=== PATIENT | male | born 1965 | race Caucasian/White ===

== ENCOUNTER 2016-12-17 09:34 | Emergency (ER) | payer MEDICAID, OTHER ==
[~2016-12-17] VITALS: Ht 182.9 cm; Wt 86.2 kg
[~2016-12-17 09:34] MED LIST: /CELE20CA OR; /ESCI20TA OR; /HALO5TAB OR; /QUET10TA OR; ABIL5TAB OR; AMBI10TA OR; ASPI81CH3 PO; ATIV1TAB2 OR; CLAR5CHW OR; CLARITIN PO; COLA100C2 OR; DEPA500T OR; FLON0.05; GEOD20CA14 PO; HYDR-4274 PO; HYDR50TA8 OR; IBUP600T OR; LEXA5TAB13 PO; OXCA300T PO; PERC5TAB8 OR; SERO200T OR; SEROQUEL PO; TOPI25TA2 OR; TRAM50TA2 OR; TRAZ150T OR; TRAZ300T2 OR; TRAZ50TA OR; ULTRAM PO; WELL200T OR
[2016-12-17 09:35] VITALS: BP 116/72
[2016-12-17] MEDS ORDERED: IBUP80TA PO (10:22)
[2016-12-17] MEDS ORDERED: TYLE325T5 PO (10:22)
[2016-12-17] MEDS ORDERED: AMOX500C PO (10:22)
== END 2016-12-17 10:29 | disposition home or self-care (01) ==
LOC: M ED 10:17
DX: K02.9 Dental caries, unspecified (principal)

== ENCOUNTER 2017-03-11 08:49 | Emergency (ER) | payer MEDICAID, OTHER ==
[~2017-03-11] VITALS: Ht 182.9 cm; Wt 99.9 kg
[~2017-03-11 08:49] MED LIST changes: +AMOX500C PO; -HYDR-4274 PO; +HYDR50TA70 PO; +IBUP80TA PO; +TYLE325T5 PO
[2017-03-11] MEDS ORDERED: LEXA5TAB13 PO (10:17)
[2017-03-11 10:22] VITALS: BP 137/93
== END 2017-03-11 10:24 | disposition home or self-care (01) ==
LOC: M ED 08:49
DX: Z76.0 Encounter for issue of repeat prescription (principal); F32.9 Major depressive disorder, single episode, unspecified; F41.9 Anxiety disorder, unspecified

== ENCOUNTER 2020-05-10 00:11 | Emergency (ER) | payer MEDICAID, OTHER, SELFPAY ==
[~2020-05-10] VITALS: Ht 182.9 cm; Wt 102.2 kg
[~2020-05-10 00:11] MED LIST changes: -/CELE20CA OR; -/ESCI20TA OR; -/HALO5TAB OR; -/QUET10TA OR; -ASPI81CH3 PO; +ASPI81CH48 PO; +CELE1CAP4 OR; +HALO1TAB21 OR; +LEXA1TAB2 OR; -OXCA300T PO; +OXCA300T14 PO; +SERO1TAB OR
[2020-05-10 00:12] VITALS: BP 153/73
[2020-05-10] MEDS ORDERED: Thorazine PO (00:18)
[2020-05-10] MEDS ORDERED: ASEN5TA SL ×2 (00:18→01:37)
[2020-05-10] MEDS ORDERED: thorazine PO (01:35)
== END 2020-05-10 01:44 | disposition home or self-care (01) ==
LOC: M ED 00:11
DX: Z76.0 Encounter for issue of repeat prescription (principal); F31.9 Bipolar disorder, unspecified; Z79.899 Other long term (current) drug therapy; Z88.8 Allergy status to other drugs, medicaments and biological substances

== ENCOUNTER 2020-05-12 16:07 | Emergency (ER) | payer SELFPAY ==
[~2020-05-12] VITALS: Ht 182.9 cm; Wt 100.9 kg
[2020-05-12 16:07] VITALS: BP 130/90
[~2020-05-12 16:07] MED LIST changes: +ASEN5TA SL; +Thorazine PO; +thorazine PO
[2020-05-12] MEDS ORDERED: NS 1,000 ML IV ONE (16:30)
[2020-05-12] MEDS ORDERED: KETOROLAC 30 MG/ML 1ML VIAL IV ONE (16:30)
[2020-05-12] MEDS ORDERED: METOCLOPRAMIDE INJ 10MG/2ML VIAL (J2765 PER 1) IV ONE (16:30)
[2020-05-12 16:43] LABS: HEMATOCRIT 39.5 % (42.0-52.0); MEAN CORPUSCULAR HEMOGLOBIN 30.2 pg (27.0-33.0); MEAN CORPUSCULAR HGB CONC 32.9 g/dl (32.0-36.5); MEAN CORPUSCULAR VOLUME 91.6 fl (80.0-96.0); PLATELET COUNT, AUTOMATED 280 10^3/uL (150-450); RED BLOOD COUNT 4.31 10^6/uL (4.30-6.10); WHITE BLOOD COUNT 10.1 10^3/uL (4.0-10.0)
[2020-05-12 17:10] LABS: ALBUMIN 3.4 GM/DL (3.2-5.2); ALT/SGPT 95 U/L (12-78); BILIRUBIN,DIRECT 0.1 MG/DL (0.0-0.2); BILIRUBIN,TOTAL 0.3 MG/DL (0.2-1.0); BLOOD UREA NITROGEN 11 MG/DL (7-18); CALCIUM LEVEL 8.8 MG/DL (8.5-10.1); CARBON DIOXIDE LEVEL 26 MEQ/L (21-32); CHLORIDE LEVEL 108 MEQ/L (98-107); CREATININE FOR GFR 0.88 MG/DL (0.70-1.30); GLOMERULAR FILTRATION RATE > 60.0 (>56); GLUCOSE, FASTING 105 MG/DL (70-100); POTASSIUM SERUM 3.9 MEQ/L (3.5-5.1); SODIUM LEVEL 140 MEQ/L (136-145)
--- NOTE | 2020-05-12 17:47 | REPVR ---
PROCEDURE INFORMATION: Exam: CT Head Without Contrast Exam date and time: 05/12/2020 4:41 PM Age: 54 years old Clinical indication: Pain; Headache not specified; Additional info: IBARRA TECHNIQUE: Imaging protocol: Computed tomography of the head without contrast. Radiation optimization: All CT scans at this facility use at least one of these dose optimization techniques: automated exposure control; mA and/or kV adjustment per patient size (includes targeted exams where dose is matched to clinical indication); or iterative reconstruction. COMPARISON: CT Head without contrast 05/30/2016 12:50 AM FINDINGS: Brain: Unremarkable. No hemorrhage. No significant white matter disease. No edema. Ventricles: Unremarkable. No ventriculomegaly. Bones/joints: Unremarkable. No acute fracture. Sinuses: Visualized sinuses are unremarkable. No fluid levels. Mastoid air cells: Visualized mastoid air cells are well aerated. Soft tissues: Unremarkable. IMPRESSION: No acute abnormality. Electronically signed by: Edwin Kruse On 05/12/2020 17:47:00 PM
== END 2020-05-12 18:41 | disposition home or self-care (01) ==
LOC: M ED 16:07
DX: F17.200 Nicotine dependence, unspecified, uncomplicated (principal); Z88.6 Allergy status to analgesic agent; Z88.8 Allergy status to other drugs, medicaments and biological substances
CPT/HCPCS: 70450; 80048; 80076; 82140; 85027; 96361; 96374; 99283; J1885; J2765

== ENCOUNTER 2020-06-05 09:33 | Emergency (ER) | payer OTHER, SELFPAY ==
[~2020-06-05] VITALS: Ht 182.9 cm; Wt 94.3 kg
[2020-06-05 11:29] VITALS: BP 151/91
== END 2020-06-05 11:31 | disposition home or self-care (01) ==
LOC: M ED 09:33
DX: Z59.0 Homelessness (principal); F17.200 Nicotine dependence, unspecified, uncomplicated; F12.10 Cannabis abuse, uncomplicated; Z88.6 Allergy status to analgesic agent; Z88.8 Allergy status to other drugs, medicaments and biological substances; Z79.899 Other long term (current) drug therapy

== ENCOUNTER 2020-06-15 08:58 | Emergency (ER) | payer OTHER ==
[~2020-06-15] VITALS: Ht 182.9 cm; Wt 96.5 kg
[2020-06-15] MEDS ORDERED: LIDOCAINE 5% (LIDODERM) PATCH TD ONE (09:30)
[2020-06-15] MEDS ORDERED: KETOROLAC 60MG 2ML VIAL IM ONE (09:30)
[2020-06-15 10:19] VITALS: BP 120/79
[2020-06-15] MEDS ORDERED: **NOTE PATIENT COMMENT** MISC XX SCH (21:00)
== END 2020-06-15 10:32 | disposition home or self-care (01) ==
LOC: M ED 08:58
DX: M25.512 Pain in left shoulder (principal); F12.10 Cannabis abuse, uncomplicated; Z79.899 Other long term (current) drug therapy; Z88.8 Allergy status to other drugs, medicaments and biological substances; Z88.6 Allergy status to analgesic agent
CPT/HCPCS: 96372; 99283; J1885

== ENCOUNTER 2020-06-18 02:32 | Emergency (ER) | payer OTHER ==
[~2020-06-18] VITALS: Ht 182.9 cm; Wt 97.2 kg
[2020-06-18] MEDS ORDERED: ASEN5TA SL (04:00)
[2020-06-18] MEDS ORDERED: CHLOR50TA PO (04:00)
[2020-06-18] MEDS ORDERED: chlorproMAZINE 25 MG TABLET PO ONE (04:00)
[2020-06-18 04:27] VITALS: BP 117/71
== END 2020-06-18 04:31 | disposition home or self-care (01) ==
LOC: M ED 02:32
DX: Z63.4 Disappearance and death of family member (principal); Z91.14 Patient's other noncompliance with medication regimen; Z79.899 Other long term (current) drug therapy; Z88.8 Allergy status to other drugs, medicaments and biological substances
CPT/HCPCS: 99284; Q0161

== ENCOUNTER 2020-07-13 06:31 | Emergency (ER) | payer OTHER ==
[~2020-07-13] VITALS: Ht 182.9 cm; Wt 94.0 kg
[~2020-07-13 06:31] MED LIST changes: +CHLOR50TA PO
[2020-07-13] MEDS ORDERED: KETOROLAC 30 MG/ML 1ML VIAL IM ONE (07:30)
--- NOTE | 2020-07-13 07:38 | REP ---
INDICATION: productive cough. COMPARISON: Comparison chest x-ray June 22, 2016. TECHNIQUE: PA and lateral views... FINDINGS: Lungs are well inflated and free of infiltrate. Pleural angles are sharp. Heart size is normal. Pulmonary vasculature is not increased. No significant bony abnormality. IMPRESSION: Negative chest x-ray. <Electronically signed by Adam Rosado > 07/13/20 0780
--- NOTE | 2020-07-13 08:06 | ECGEPIP ---
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 Order Number: [id number] Reading MD: Clinton West Measurements Intervals [place] Rate: 82 P: 61 KS: 169 QRS: 37 QRSD: 84 T: 19 QT: 368 QTc: 430 Interpretive Statements SINUS RHYTHM POSSIBLE PRIOR INFERIOR INFARCT Electronically Signed on 07-13-2020 8:05:35 EDT by Clinton West
[2020-07-13] MEDS ORDERED: MUCI600T31 PO (08:24)
[2020-07-13] MEDS ORDERED: NAPR-837 PO (08:24)
[2020-07-13 08:35] VITALS: BP 115/69
== END 2020-07-13 08:38 | disposition home or self-care (01) ==
LOC: M ED 06:31
DX: G89.29 Other chronic pain (principal); M54.9 Dorsalgia, unspecified; M25.512 Pain in left shoulder; R05 Cough; Z79.899 Other long term (current) drug therapy; Z88.8 Allergy status to other drugs, medicaments and biological substances
CPT/HCPCS: 71046; 93005; 96372; 99284; J1885

== ENCOUNTER 2020-08-01 15:12 | Emergency (ER) | payer OTHER ==
[~2020-08-01] VITALS: Ht 182.9 cm; Wt 87.5 kg
[~2020-08-01 15:12] MED LIST changes: +MUCI600T31 PO; +NAPR-837 PO
[2020-08-01] MEDS ORDERED: CHLOR50TA PO (16:56)
[2020-08-01] MEDS ORDERED: ASEN5TA SL (16:56)
[2020-08-01 17:00] VITALS: BP 133/65
== END 2020-08-01 17:01 | disposition home or self-care (01) ==
LOC: M ED 15:12
DX: Z76.0 Encounter for issue of repeat prescription (principal); I10 Essential (primary) hypertension; F31.9 Bipolar disorder, unspecified; F41.9 Anxiety disorder, unspecified; F43.10 Post-traumatic stress disorder, unspecified; Z79.899 Other long term (current) drug therapy; Z88.8 Allergy status to other drugs, medicaments and biological substances

== ENCOUNTER 2020-08-12 13:07 | Emergency (ER) | payer MEDICAID, OTHER ==
[~2020-08-12] VITALS: Ht 182.9 cm; Wt 88.3 kg
[2020-08-12] MEDS ORDERED: TRIA1CR80 TOP (13:57)
[2020-08-12] MEDS ORDERED: PRED20TA PO (13:57)
[2020-08-12] MEDS ORDERED: predniSONE 20 MG TAB PO ONE (14:00)
[2020-08-12 14:48] VITALS: BP 132/88
== END 2020-08-12 14:51 | disposition home or self-care (01) ==
LOC: M ED 13:07
DX: L30.9 Dermatitis, unspecified (principal); I10 Essential (primary) hypertension; F33.9 Major depressive disorder, recurrent, unspecified; F41.9 Anxiety disorder, unspecified; F43.10 Post-traumatic stress disorder, unspecified; Z79.899 Other long term (current) drug therapy; Z88.8 Allergy status to other drugs, medicaments and biological substances; F17.210 Nicotine dependence, cigarettes, uncomplicated

== ENCOUNTER 2020-08-30 09:25 | Inpatient (IN) | payer MEDICAID ==
[~2020-08-30] VITALS: Ht 182.9 cm; Wt 84.1 kg
[~2020-08-30 09:25] MED LIST changes: +PRED20TA PO; +TRIA1CR80 TOP
[2020-08-30 10:24] LABS: HEMATOCRIT 43.8 % (42.0-52.0); HEMOGLOBIN 14.2 g/dl (13.5-17.5); MEAN CORPUSCULAR HGB CONC 32.4 g/dl (32.0-36.5); MEAN CORPUSCULAR VOLUME 89.6 fl (80.0-96.0); PLATELET COUNT, AUTOMATED 215 10^3/uL (150-450); RED BLOOD COUNT 4.89 10^6/uL (4.30-6.10); WHITE BLOOD COUNT 7.1 10^3/uL (4.0-10.0)
[2020-08-30 10:56] LABS: AMPHETAMINES LEVEL URINE POSITIVE (NEGATIVE); BARBITURATES URINE NEGATIVE (NEGATIVE); BENZODIAZEPINES URINE NEGATIVE (NEGATIVE); CANNABINOIDS URINE POSITIVE (NEGATIVE); COCAINE METABOLITE URINE NEGATIVE (NEGATIVE); METHADONE URINE NEGATIVE (NEGATIVE); OPIATES URINE NEGATIVE (NEGATIVE); PHENCYCLIDINE URINE NEGATIVE (NEGATIVE)
[2020-08-30 11:04] LABS: ACETAMINOPHEN LEVEL < 2.0 UG/ML (10.0-30.0); ALBUMIN 3.7 GM/DL (3.2-5.2); ALT/SGPT 26 U/L (12-78); BILIRUBIN,DIRECT 0.1 MG/DL (0.0-0.2); BILIRUBIN,TOTAL 0.5 MG/DL (0.2-1.0); BLOOD UREA NITROGEN 10 MG/DL (7-18); CARBON DIOXIDE LEVEL 27 MEQ/L (21-32); CHLORIDE LEVEL 106 MEQ/L (98-107); CREATININE FOR GFR 0.88 MG/DL (0.70-1.30); ETHYL ALCOHOL (ETHANOL) < 0.003 % (0.000-0.010); GLOMERULAR FILTRATION RATE > 60.0 (>56); GLUCOSE, FASTING 94 MG/DL (70-100); SALICYLATE LEVEL 2.9 MG/DL (5.0-30.0); SODIUM LEVEL 139 MEQ/L (136-145); TOTAL PROTEIN 7.3 GM/DL (6.4-8.2)
[2020-08-30] MEDS ORDERED: ASEN5TA SL (13:27)
[2020-08-30] MEDS ORDERED: CHLOR50TA PO (13:27)
[2020-08-30] MEDS ORDERED: TRIA1CR80 TOP (13:27)
[2020-08-30 15:26] LABS: RSV AMPLIFICATION NEGATIVE (NEGATIVE)
[2020-08-30] MEDS ORDERED: OLANZapine ORAL DISINTEGRATING TAB 5MG PO PRN (16:15)
[2020-08-30] MEDS ORDERED: ACETAMINOPHEN TAB 650MG DOSE (2X325MG) PO PRN (16:15)
[2020-08-30] MEDS ORDERED: MAALOX 30 ML SUSP *UDC PO PRN (16:15)
[2020-08-30] MEDS ORDERED: traZODone 50 MG TAB PO PRN (16:15)
[2020-08-30] MEDS ORDERED: MOM 30ML SUSPENSION UDC PO PRN (16:15)
[2020-08-30 18:48] VITALS: BP 123/84
[2020-08-30] MEDS: chlorproMAZINE 25 MG TABLET PO SCH (21:13)
[2020-08-31 06:34] VITALS: BP 132/89
[2020-08-31] MEDS: NICOTINE 7 MG/24 HR TRANSDERMAL TD SCH (08:36)
[2020-08-31] MEDS: chlorproMAZINE 25 MG TABLET PO SCH ×2 (08:37→21:09)
[2020-08-31] MEDS ORDERED: FLUBLOK(EGG FREE)(QUAD)INFLUENZA VACC 0.5ML SYRINGE 18YRS & OLDER IM ONE (09:00)
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
[2020-08-31] MEDS ORDERED: ACETAMINOPHEN 500 MG TAB PO PRN (14:30)
[2020-08-31] MEDS ORDERED: ASENAPINE 5 MG SL SCH (21:00)
[2020-09-01 06:37] VITALS: BP 141/85
[2020-09-01] MEDS: chlorproMAZINE 25 MG TABLET PO SCH ×2 (08:39→20:37)
[2020-09-01] MEDS: TRIAMCINOLONE ACET 0.1% CREAM 80 GM TOP PRN ×2 (08:41→20:36)
[2020-09-01] MEDS: NICOTINE 7 MG/24 HR TRANSDERMAL TD SCH (09:00)
--- NOTE | 2020-09-01 13:10 | CR.PDOC ---
General Date of Consultation: Sep 01, 2020 Consultation REASON FOR CONSULTATION/CHIEF COMPLAINT: Derm consultation was requested following patient complaints of pruritus and to rule out infestation. HISTORY OF PRESENT ILLNESS: Patient c/o a pruritic eruption on trunk and extremities x 2+ weeks. Patient notes having been given a course of prednisone (which he ended about 3 days ago), which he took with significant improvement. Patient states that now that he is off the oral steroids, the rash is starting to flare again. ALLERGIES: Please see below. HOME MEDICATIONS: Please see below. PE: -Eczematous eruption on trunk and extremities. -Annular eczematous plaques on bilateral hips. -Nothing noted in interdigital web spaces or flexural wrists. A/P: 1. Eczematous Dermatitis -Suggest triamcinolone 0.1% cream to be applied twice daily to trunk and extremities x 2 weeks (15 grams daily) 2. No evidence of Infestation Vital Signs/I&O Vital Signs Date Time Temp Pulse Resp B/P (MAP) Pulse Ox O2 Delivery O2 Flow Rate FiO2 09/01/20 06:37 98.7 89 16 141/85 (103) 100 Room Air Allergies Coded Allergies: aripiprazole (Verified Allergy, Intermediate, tardive dyskenesia, 05/10/20) lithium (Verified Allergy, Intermediate, numbness, 06/15/20) risperidone (Verified Allergy, Intermediate, sleep disorder, 06/15/20) divalproex sodium (Verified Allergy, Mild, PT REPORTS ITCHING, NO RESPIRATORY ISSUES., 05/10/20) trazodone (Verified Allergy, Unknown, 05/10/20) Home Medications Scheduled Asenapine (Saphris) 5 Mg Tab.subl, 5 MG SL BID, (Reported) Chlorpromazine HCl (Chlorpromazine HCl) 50 Mg Tablet, 50 MG PO BID, (Reported) Scheduled PRN Triamcinolone Acet (Triamcinolone Acetonide 0.1% Crm) 80 Gm Cream..g., 1 APPLIC TOP BID PRN for RASH/HIVES, (Reported) Brigid Gold PA-C Sep 01, 2020 13:10
--- NOTE | 2020-09-01 13:17 | MHIPNPDOC ---
[facility] Progress Note Progress Note DATE OF SERVICE: 09/01/20 HISTORY: The patient is met with today, reports that he is doing generally well without any major problems, he currently describes that he is feeling much im proved and doesn't have any complaints today. He hasn't started on the Saphris but reports that the Thorazine is quite helpful for his moods and he has interacted occasionally. He's had no concerning behavior per nursing staff. VITAL SIGNS: See below. NEW TEST RESULTS: None. CURRENT MEDICATIONS: See below. MENTAL STATUS EXAMINATION: General: [Well dressed with good hygiene] Speech: [Spontaneous and fluid] Thought processes: [Linear and logical] Thought content: [Future orientated] Abstract reasoning, and computation: [Intact] Description of associations: [Intact] Description of abnormal or psychotic thoughts:[Denies any suicidal or homicidal ideation. Denies any auditory or visual hallucinations. Does not appear to be responding to internal stimuli. Does not appear to be endorsing any bizarre or paranoid ideation.] Judgment: [Fair] Insight: [Fair] Orientation: [Alert and orientated 3] Recent and remote memory: [Intact] Attention span and concentration: [Intact] Fund of knowledge: [Adequate] Mood: "Good" Affect: [Euthymic with a full range] DIAGNOSES: 1. Other bipolar disorder. ASSESSMENT: Plans to continue patient on current home medications will observe over tonight and continue Seroquel will triaged for discharge as he appears to make quite a bit of progress and has not been demonstrating any paranoid thoughts and does well his medications. He has not demonstrated any difficulties and will be generally ready for discharge shortly MANAGEMENT PLAN: Continue Thorazine 2 mg twice a day and attempt to get Saphris 5 mg twice a day as well. TIME SPENT: 15 minutes. Vital Signs Vital Signs Date Time Temp Pulse Resp B/P (MAP) Pulse Ox O2 Delivery O2 Flow Rate FiO2 09/01/20 06:37 98.7 89 16 141/85 (103) 100 Room Air Current Medications Current Medications Medications (Trade) Dose Ordered Sig/Josie Route PRN Reason Start Time Stop Time Status Last Admin Dose Admin Acetaminophen (Tylenol Tab) 650 mg Q6HP PRN PO HEADACHE or DISCOMFORT 08/30/20 16:15 08/31/20 14:18 DC Acetaminophen (Tylenol Tab) 1,000 mg Q6HP PRN PO PAIN/ headache 08/31/20 14:30 Al Hydrox/Mg Hydrox/Simethicone (Mylanta) 30 ml Q4HP PRN PO HEARTBURN/INDIGESTION 08/30/20 16:15 Chlorpromazine HCl (Thorazine) 50 mg BID PO 08/30/20 21:00 09/01/20 08:39 Home Med (Med Rec Complete!) ASDIRECTED XX 08/30/20 13:30 08/30/20 13:29 DC Magnesium Hydroxide (Milk Of Magnesia) 30 ml DAILYPRN PRN PO CONSTIPATION 08/30/20 16:15 Nicotine (Nicoderm Cq 7 Mg) 1 patch DAILY TD 08/31/20 09:00 Olanzapine (ZyPREXA ZYDIS) 5 mg Q4HP PRN PO AGITATION 08/30/20 16:15 Patient Own Medication (Patient'S Own Med) Asenapine 5mg SL BID SL 08/31/20 21:00 UNV Trazodone HCl (Desyrel) 50 mg QHSP PRN PO INSOMNIA 08/30/20 16:15 Triamcinolone Acetonide (Kenalog 0.1% Cream) APPLY TO AFFECTED AREAS... BIDP PRN TOP RASH/HIVES 08/30/20 16:15 09/01/20 08:41 Allergies Coded Allergies: aripiprazole (Verified Allergy, Intermediate, tardive dyskenesia, 05/10/20) lithium (Verified Allergy, Intermediate, numbness, 06/15/20) risperidone (Verified Allergy, Intermediate, sleep disorder, 06/15/20) divalproex sodium (Verified Allergy, Mild, PT REPORTS ITCHING, NO RESPIRATORY ISSUES., 05/10/20) trazodone (Verified Allergy, Unknown, 05/10/20) RIZWAN KENNEDY DO Sep 01, 2020 13:17
[2020-09-01 18:00] VITALS: BP 123/87
[2020-09-02 06:23] VITALS: BP 147/91
[2020-09-02] MEDS: NICOTINE 7 MG/24 HR TRANSDERMAL TD SCH (09:00)
[2020-09-02] MEDS: chlorproMAZINE 25 MG TABLET PO SCH (09:08)
[2020-09-02] MEDS: TRIAMCINOLONE ACET 0.1% CREAM 80 GM TOP PRN (09:10)
--- NOTE | 2020-09-02 10:01 | MHDSPDOC ---
[facility] Discharge Summary Discharge Summary DATE OF ADMISSION: Aug 30, 2020 at 16:10 DATE OF DISCHARGE: Sep 02, 2020 at 15:10 DISCHARGE DIAGNOSES: Bipolar, unspecified CONSULTANTS INVOLVED:[ None (basic hospitalist screening)] REASON FOR ADMISSION & TREATMENT AND PROGRESS ON THE UNIT : The patient was admitted to the inpatient mental health unit being off his medications with some mild reported paranoia. However, when he had arrived on the unit this was not present. He was resumed on Thorazine 50 mg twice daily with positive effects, he was not able to be resumed on previously effective Saphris as we did not have been on the unit, he reported poor results with Zyprexa and other close approximations. He did well on Thorazine and engaged without any major issues, no threatening behavior suicide or other issues became present in his treatment. He was always cooperative and engaged during treatment and otherwise offered no resistance to our treatment suggestions. He made good progress and was triaged for discharge. DISCHARGE ASSESSMENT[improved] Legal status considerations: The patient at the time of discharge did not meet criteria for involuntary admission/extension due to having a [normal] mental status exam, [fair] insight into the situation, They are engaged in the discharge process, as well as being friendly and amenable in behavioral control and havent been engaging in any observed concerning behavior or ideation recently. They decline voluntary extension/admission at this time and must be discharged in good miki, as Im unable to make a case for holding the patient against their will. They may have historical risk factors of admissions and other interactions with psychiatry however, those are not modifiable from a clinical perspective. The patient will need to be discharged in good miki. MENTAL STATUS EXAMINATION ON DISCHARGE: [General: Well dressed with good hygiene Speech: Spontaneous and fluid Thought processes: Linear and logical Thought content: Future orientated Abstract reasoning, and computation: Intact Description of associations: Intact Description of abnormal or psychotic thoughts:Denies any suicidal or homicidal ideation. Denies any auditory or visual hallucinations. Does not appear to be re sponding to internal stimuli. Does not appear to be endorsing any bizarre or paranoid ideation. Judgment: fair Insight: fair Orientation: Alert and orientated 3 Recent and remote memory: Intact Attention span and concentration: Intact Fund of knowledge: Adequate Mood: "okay" Affect: Euthymic with a full range] PLAN/FOLLOWUP ARRANGEMENTS: Follow up appointments made (PCP and MH in 5 days of D/C date) and safety plan completed. Safety Planning aspects completed prior to discharge [Medication supplies limited to 7 days with 4 refills to prevent accumulation to OD] [Family contact completed, educated on safe practices, instructed on removal and mitigation of dangerous means] [RN reviewed crisis hotline information and other aspects to empower patient to access care in interim before next appointment.] The amount of time spent in the coordination of care for this patient was appr oximately 30 minutes. Vital Signs/I&Os Vital Signs Date Time Temp Pulse Resp B/P (MAP) Pulse Ox O2 Delivery O2 Flow Rate FiO2 09/02/20 06:23 98.6 99 14 147/91 (109) Room Air 09/01/20 06:37 100 Medications Scheduled Asenapine (Saphris) 5 Mg Tab.subl, 5 MG SL BID for mood for 7 Days, #14 Chlorpromazine HCl (Chlorpromazine HCl) 50 Mg Tablet, 50 MG PO BID for mood for 7 Days, #14 Scheduled PRN Triamcinolone Acet (Triamcinolone Acetonide 0.1% Crm) 80 Gm Cream..g., 1 APPLIC TOP BID PRN for RASH/HIVES, (Reported) Allergies Coded Allergies: aripiprazole (Verified Allergy, Intermediate, tardive dyskenesia, 05/10/20) lithium (Verified Allergy, Intermediate, numbness, 06/15/20) risperidone (Verified Allergy, Intermediate, sleep disorder, 06/15/20) divalproex sodium (Verified Allergy, Mild, PT REPORTS ITCHING, NO RESPIRATORY ISSUES., 05/10/20) trazodone (Verified Allergy, Unknown, 05/10/20) RIZWAN KENNEDY DO Sep 02, 2020 10:01
[2020-09-02] MEDS ORDERED: ASEN5TA SL (11:55)
[2020-09-02] MEDS ORDERED: CHLOR50TA PO (11:55)
== END 2020-09-02 15:10 | disposition home or self-care (01) | DRG 753 ==
LOC: M ED 09:25 → M ED INP 16:10 → M PSY 18:32
PROVIDERS: ADMIT Psychiatry & Neurology Addiction Medicine; ATTEND Psychiatry & Neurology Addiction Medicine
DX: F31.9 Bipolar disorder, unspecified (principal); L30.9 Dermatitis, unspecified; Z79.899 Other long term (current) drug therapy

== ENCOUNTER 2020-09-29 00:38 | Emergency (ER) | payer MEDICAID ==
[~2020-09-29] VITALS: Ht 182.9 cm; Wt 84.1 kg
--- OUTSIDE RECORDS SUMMARY | 2020-09-29 00:43 | CCD ---
Author Organization Unknown Address [address] [place] [address] Phone [phone] Care Team Providers Care Commercial Loan Reviewer Name Role Phone Fallon Bruner Unavailable Unavailable Allergies Code Code System Name Reaction Severity Status Onset 43298 RxNorm Aripiprazole Other Moderate Active Divalproex Sodium Itching Mild Active 6448 RxNorm Sopchoppy Other Moderate Active 88836 RxNorm Risperidone Other Moderate Active 54015 RxNorm Trazodone Active Medications Name Status Start Date Stop Date chlorpromazine 50 mg tablet TAKE ONE TABLET BY MOUTH TWICE DAILY Active No t available escitalopram 5 mg tablet Completed 020 hydroxyzine HCl 50 mg tablet Take 1 tablet 3 times a day by oral route. Completed 09/09/2020 Medrol (Estrada) 4 mg tablets in a dose pack 1 dose pack as directed Active Not available Mucinex 600 mg tablet, extended release TK 1 T PO BID COU Completed 09/03/2020 naproxen 500 mg tablet TK 1 T PO BID WF Completed 09/09/2020 prednisone 20 mg tablet TK 3 TS PO D Completed 09/03/2020 Saphris 10 mg sublingual tablet Completed 09/03/2020 Saphris 5 mg sublingual tablet DISSOLVE 1 TABLET UNDER THE TONGUE TWICE DAILY FOR MOOD Active Not available triamcinolone acetonide 0.1 % topical cr eam APPLY TOPICALLY TO AFFECTED AREA BID Completed Problems None recorded. Procedures Notes: collapsed lung (2009), carpal filipe ila R wrist (2001). Results Lab Results None recorded. Past Encounters 09/09/2020 Schizophrenia; Eruption Fallon Bruner PA-C: [address] [place] [address], Ph. 09/03/2020 Schizophrenia; Eruption Fallon Bruner PA-C: [address] [place] [address], Ph. Social History Tobacco Smoking Status Never Smoker Vaccine List None recorded. Plan of Care Reminders Provider Appointments None recorded. Lab None recorded. Referral None recorded. Procedures None recorded. Surgeries None recorded. Imaging None recorded. Vitals None recorded.
--- OUTSIDE RECORDS SUMMARY | 2020-09-29 00:43 | CCD ---
Author Organization Unknown Address [address] [place] [address] Phone [phone] Care Team Providers Care Service Or Work Dispatcher Chief Name Role Phone Fallon Bruner Unavailable Unavailable Allergies Code Code System Name Reaction Severity Status Onset 01303 RxNorm Aripiprazole Other Moderate Active Divalproex Sodium Itching Mild Active 6448 RxNorm [place]on Other Moderate Active 88980 RxNorm Risperidone Other Moderate Active 97065 RxNorm Trazodone Active Medications Name Status Start Date Stop Date chlorpromazine 50 mg tablet TAKE ONE TABLET BY MOUTH TWICE DAILY Active No t available escitalopram 5 mg tablet Completed 020 hydroxyzine HCl 50 mg tablet Take 1 tablet 3 times a day by oral route. Active Not available Mucinex 600 mg tablet, extended release TK 1 T PO BID COU Completed 09/03/2020 naproxen 500 mg tablet TK 1 T PO BID WF Active Not available prednisone 20 mg tablet TK 3 TS PO D Completed 09/03/2020 Saphris 10 mg sublingual tablet Completed 09/03/2020 [address]aphris [address] 1 tablet twice a day by sublingual route. Active Not available triamcinolone acetonide 0.1 % topical cr eam APPLY TOPICALLY TO AFFECTED AREA BID Completed Problems None recorded. Procedures None recorded. Results Lab Results None recorded. Past Encounters 09/03/2020 Schizophrenia; Eruption DEE HuangC: [address] [place] [address], Ph. Social History Tobacco Smoking Status Never Smoker Vaccine List None recorded. Plan of Care Reminders Provider Appointments None recorded. Lab None recorded. Referral None recorded. Procedures None recorded. Surgeries None recorded. Imaging None recorded. Vitals None recorded.
--- OUTSIDE RECORDS SUMMARY | 2020-09-29 00:43 | CCD ---
Author Author Tino Retana Organization Unknown Address [address] [address] Phone Care Team Providers Care Erp Specialist Name Role Phone Santana Retana PCP Allergies, Adverse Reactions, Alerts No Data in Section Problem List Concept Problem Description Status Start Date Created Date Resolv ed Date Snomed Code F31.9 Unspecified Bipolar and Related Disorder Active 09/09/2020 Medications Rx Norm Medication Route Route Concept Start Date Stop Date Dosage Tomas quency Duration Formula Strength Dosage Form Dosage Form Code Dosage Description Medication Id Account Npid Author First Name Author Last Name Taxonomy Code Taxonomy Desc Phone Number [id number] Lexapro 02/05/2015 once a day 5 mg tablet [id number] Amelie Fong [id number] Psychiatric/Mental Health 31 [phone] [id number] Seroquel by mouth [id number] 04/07/2016 at bedtime 50 mg ta blet as needed [id number] Tino Bishop [id number] Psychiatry [id number] benztropine 08/17/2016 twice a day 1 mg tablet [id number] Tino Bishop [id number] Psychiatry [id number] Social History Social History Element Description Concept Effective Date Smoking Status Unknown if ever smoked [id number] Immunizations No Data in Section Vital Signs No Data in Section Procedures Date Concept Id Description Targeted Site Concept Targeted Site Concept Type 09/09/2020 42137 Extended Individual Psychotherapy - 45 min CPT Patient has no history of implantable de vices Encounters Encounter Start Date End Date Encounter Type Description Diagnosis Di agnosis Desc Location Author First Name Author Last Name Npid Taxonomy Cod e Taxonomy Desc Phone Number Location Addr1 Location Addr2 Location City Location Sta [place] Location Zip [id number] 09/09/2020 09/09/2020 34934 Extended Individual Psych otherapy - 45 min F31.9 Bipolar disorder, unspecified [facility] Mazin Santana [id number] Information Systems Security Analyst [id number] [address] [address] Plan of Treatment No Data in Section Lab Results No Data in Section Instructions No Data in Section Insurance Providers Insurance Id Policy Effective Date Policy Thru Date Company N rainer [id number] 2016 [facility]
--- OUTSIDE RECORDS SUMMARY | 2020-09-29 00:43 | CCD ---
Author Author [facility] Organization [facility] Address Unknown Phone Unavailable Care Team Providers Care Slat Basket Maker Name Role Phone Talia Bruner PA Unavailable Unavailable Scordo, M Fallon PA Unavailable Unavailable Scordo, M Fallon PA Unavailable Unavailable Scordo, M Fallon PA Unavailable Unavailable Scordo, M Fallon PA Unavailable Unavailable Scordo, M Fallon PA Unavailable Unavailable Scordo, M Fallon PA Unavailable Unavailable Scordo, M Fallon PA Unavailable Unavailable Scordo, M Fallon PA Unavailable Unavailable Scordo, M Fallon PA Unavailable Unavailable Scordo, M Fallon PA Unavailable Unavailable Scordo, M Fallon PA Unavailable Unavailable Scordo, M Fallon PA Unavailable Unavailable Scordo, M Fallon PA Unavailable Unavailable Scordo, M Fallon PA Unavailable Unavailable Scordo, M Fallon PA Unavailable Unavailable Scordo, M Fallon PA Unavailable Unavailable Scordo, M Fallon PA Unavailable Unavailable Scordo, M Fallon PA Unavailable Unavailable Scordo, M Fallon PA Unavailable Unavailable Scordo, M Fallon PA Unavailable Unavailable Scordo, M Fallon PA Unavailable Unavailable Scordo, M Fallon PA Unavailable Unavailable Scordo, M Fallon PA Unavailable Unavailable Scordo, M Fallon PA Unavailable Unavailable Scordo, M Fallon PA Unavailable Unavailable Scordo, M Fallon PA Unavailable Unavailable Scordo, M Fallon PA Unavailable Unavailable Scordo, M Fallon PA Unavailable Unavailable Scordo, M Fallon PA Unavailable Unavailable Scordo, M Fallon PA Unavailable Unavailable Scordo, M Fallon PA Unavailable Unavailable Scordo, M Fallon PA Unavailable Unavailable Scordo, M Fallon PA Unavailable Unavailable Scordo, M Fallon PA Unavailable Unavailable Scordo, M Fallon PA Unavailable Unavailable Scordo, M Fallon PA Unavailable Unavailable Scordo, M Fallon PA Unavailable Unavailable Scordo, M Fallon PA Unavailable Unavailable Scordo, M Fallon PA Unavailable Unavailable LaBarge, Santana Unavailable Re-disclosure Warning The records that you are about to access may contain information from federally-assisted alcohol or drug abuse programs. If such information is present, then the following federally mandated warning applies: This information has been disclosed to you from records protected by federal confidentiality rules (42 CFR part 2). The federal rules prohibit you from making any further disclosure of this information unless further disclosure is expressly permitted by the written consent of the person to whom it pertains or as otherwise permitted by 42 CFR part 2. A general authorization for the release of medical or other information is NOT sufficient for this purpose. The Federal rules restrict any use of the information to criminally investigate or prosecute any alcohol or drug abuse patient.The records that you are about to access may contain highly sensitive health information, the redisclosure of which is protected by Article 27-F of the [place] State Public Health law. If you continue you may have access to information: Regarding HIV / AIDS; Provided by facilities licensed or operated by the [facility] Office of Mental Health; or Provided by the [facility] Office for People With Developmental Disabilities. If such information is present, then the following [facility] mandated warning applies: This information has been disclosed to you from confidential records which are protected by state law. State law prohibits you from making any further disclosure of this information without the specific written consent of the person to whom it pertains, or as otherwise permitted by law. Any unauthorized further disclosure in violation of state law may result in a fine or alf sentence or both. A general authorization for the release of medical or other information is NOT sufficient authorization for further disc losure. Family History Family Member Name Family Member Gender Family Member Status Date o f Status Description Data Source(s) Unknown Unknown Problem MEDENT ([facility], [facility]) Encounters Encounter Providers Location Date Indications Data Source(s ) Extended Individual Psychotherapy - 45 min Attender: Fabiana Retana [facility] 09/09/2020 01:00:00 AM EST - 09/09/2020 01:00:00 AM EST [facility] ([facility]) Fallon Bruner PA-C: [address] [place] [address], Ph. Attender: Fallon MORGAN [facility] Medical 09/09/2020 12:00:00 AM EST [facility] ([facility]) Attender: Santana Retana 09/09/2020 12:00:00 AM EST [facility] ([facility]) Fallon Bruner PA-C: [address] [place] [address], Ph. Attender: Fallon MORGAN [facility] Medical 09/03/2020 12:00:00 AM EST TIMOTHY ([facility]) Fallon Bruner PA-C: [address] [place] [address], Ph. Attender: Fallon MORGAN [facility] Medical 09/03/2020 12:00:00 AM EST TIMOTHY ([facility]) Medications Medication Brand Name Start Date Product Form Dose Route Admi nistrative Instructions Pharmacy Instructions Status Indications Reaction Description Data Source(s) Hydroxyzine Hydrochloride 50 MG Oral Tab let hydroxyzine HCl 50 mg tablet Take 1 tablet 3 times a day by oral route. hydroxyzine HCl 50 mg tablet Take 1 tabl et 3 times a day by oral route. 1 completed hydroxyzine hydrochloride 50 MG Oral Tablet TIMOTHY ([facility]) Escitalopram 5 MG Oral Tablet escitalopram 5 mg tablet escit alopram 5 mg tablet completed escitalopram 5 MG Oral Tablet TIM[facility] ([facility]) Prednisone 20 MG Oral Tablet prednisone 20 mg tablet T K 3 TS PO D prednisone 20 mg tablet TK 3 TS PO D completed prednisone 20 MG Oral Tablet [facility] ([facility]) Prednisone 20 MG Oral Tablet prednisone 20 mg tablet T K 3 TS PO D prednisone 20 mg tablet TK 3 TS PO D completed prednisone 20 MG Oral Tablet [place] ([facility]) Triamcinolone Acetonide 1 MG/ML Topical Cream triamcinolone acetonide 0.1 % topical cream APPLY TOPICALLY TO AFFECTED AREA BID triamcinolone acetonide 0.1 % topical cream APPLY TOPICALLY TO AFFECTED AREA BID completed triamcinolone acetonide 1 MG/ML Topical Cream [place] ([facility]) Asenapine 10 MG Sublingual Tablet [Saphris] Saphris 10 mg sublingual tablet Saphris 10 mg sublingual tablet comple tomas asenapine 10 MG Sublingual Tablet [Saphris] TIMOTHY ([facility]) Triamcinolone Acetonide 1 MG/ML Topical Cream triamcinolone acetonide 0.1 % topical cream APPLY TOPICALLY TO AFFECTED AREA BID triamcinolone acetonide 0.1 % topical cream APPLY TOPICALLY TO AFFECTED AREA BID completed triamcinolone acetonide 1 MG/ML Topical Cream [place] ([facility]) Escitalopram 5 MG Oral Tablet escitalopram 5 mg tablet escit alopram 5 mg tablet completed escitalopram 5 MG Oral Tablet [place] ([facility]) 12 HR Guaifenesin 600 MG Extended Releas e Oral Tablet [Mucinex] Mucinex 600 mg tablet, extended release TK 1 T PO BID COU Mucinex 600 mg tablet, extended release TK 1 T PO BID COU completed 12 HR guaifenesin 600 MG Extended Release Oral Tablet [Mucinex] [place] ([facility]) Naproxen 500 MG Oral Tablet naproxen 500 mg tablet TK 1 T PO BID WF naproxen 500 mg tablet TK 1 T PO BID WF completed naproxen 500 MG Oral Tablet [facility] ([facility]) 12 HR Guaifenesin 600 MG Extended Releas e Oral Tablet [Mucinex] Mucinex 600 mg tablet, extended release TK 1 T PO BID COU Mucinex 600 mg tablet, extended release TK 1 T PO BID COU completed 12 HR guaifenesin 600 MG Extended Release Oral Tablet [Mucinex] [facility] ([facility]) Asenapine 10 MG Sublingual Tablet [Saphris] Saphris 10 mg sublingual tablet Saphris 10 mg sublingual tablet comple tomas asenapine 10 MG Sublingual Tablet [Saphris] [facility] ([facility]) Insurance Providers Payer name Policy type / Coverage type Policy ID Covered alliance party ID Covered alliance party's relationship to morel Policy Morel Plan Information EMEDNY [id number] SP [id number] O UNAVAILABLE UNAVAILA BLE EMEDNY [id number] SP [id number] NCO EPALS [id number] SP [id number] [facility] O [id number] S [id number] SELF PAY ONLY [id number] SP [id number] [facility] COMMUNITY PLAN MCDO [id number] SP [id number] MEDICAID [id number] SP [id number] MEDICAID [id number] SP [id number] MEDICAID [id number] SP [id number] [facility] COMMUNITY PLAN MCDO [id number] SP [id number] MEDICAID [id number] SP [id number] MEDICAID [id number] SP [id number] MEDICAID [id number] S [id number] [facility] COMMUNITY PLAN MCDO [id number] SP [id number] [facility] Health Maintenance Organization (HMO) Self BLUE CROSS CHU PLAN [id number] SP [id number] HMO BLUE [id number] SP [id number] Problems, Conditions, and Diagnoses Code Display Name Description Problem Type Effective Dates Data Source(s) F31.9 Bipolar disorder, unspecified Unspecified Bipola r and Related Disorder Condition 09/09/2020 12:00:00 AM EST [facility] ([facility]) Surgeries/Procedures Procedure Description Date Indications Data Source(s) Extended Individual Psychotherapy - 45 min 09/09/2020 12:00:00 AM EST - 09/09/2020 12:00:00 AM EST [facility] ([facility]) Extended Individual Psychotherapy - 45 min 0 12:00:00 AM EST [facility] ([facility]) Results ID Date Data Source [id number] 08/30/2020 02:28:00 PM EST [place] Name Value Range Interpretation Code Description Data Evangelina rce(s) Supporting Document(s) SARS coronavirus 2 RNA [Presence] in Res piratory specimen by NAOMI with probe detection [facility] This lab was ordered by [facility] a nd reported by [facility]. Procedure Social History Code Duration Value Status Description Data Source(s ) Smoking 09/09/2020 12:00:00 AM EST Unknown if ever smoked comp leted Unknown if ever smoked Kerline ([facility]) Patient Treatment Plan of Care Planned Activity Planned Date Details Description Data Source (s) Triamcinolone Acetonide 1 MG/ML [facility]ical [facility] Asenapine 10 MG Sublingual Tablet [Saphris] [facility]) Prednisone 20 MG Oral Tablet [facility] Naproxen 500 MG Oral Tablet [facility] 12 HR Guaifenesin 600 MG Extended Release Oral Tablet [facility]Mucinex] [facility] Hydroxyzine Hydrochloride 50 MG Oral Tablet [facility] Escitalopram 5 MG Oral Tablet [facility]) Triamcinolone Acetonide 1 MG/ML Topical Cream [facility] Asenapine 10 MG Sublingual Tablet [Saphris] [facility] Prednisone 20 MG Oral Tablet [facility] 12 HR Guaifenesin 600 MG Extended Release Oral Tablet [facility]Mucinex] [facility] Escitalopram 5 MG Oral Tablet [facility]
[2020-09-29 01:01] LABS: HEMOGLOBIN 13.1 g/dl (13.5-17.5); MEAN CORPUSCULAR HGB CONC 32.8 g/dl (32.0-36.5); MEAN CORPUSCULAR VOLUME 91.5 fl (80.0-96.0); PLATELET COUNT, AUTOMATED 251 10^3/uL (150-450); RED BLOOD COUNT 4.37 10^6/uL (4.30-6.10); WHITE BLOOD COUNT 9.6 10^3/uL (4.0-10.0)
[2020-09-29 01:47] LABS: ACETAMINOPHEN LEVEL < 2.0 UG/ML (10.0-30.0); ALBUMIN 3.5 GM/DL (3.2-5.2); ALT/SGPT 23 U/L (12-78); BILIRUBIN,DIRECT 0.1 MG/DL (0.0-0.2); BILIRUBIN,TOTAL 0.3 MG/DL (0.2-1.0); BLOOD UREA NITROGEN 15 MG/DL (7-18); CALCIUM LEVEL 8.7 MG/DL (8.5-10.1); CARBON DIOXIDE LEVEL 26 MEQ/L (21-32); CHLORIDE LEVEL 105 MEQ/L (98-107); ETHYL ALCOHOL (ETHANOL) < 0.003 % (0.000-0.010); GLOMERULAR FILTRATION RATE > 60.0 (>56); GLUCOSE, FASTING 111 MG/DL (70-100); POTASSIUM SERUM 3.9 MEQ/L (3.5-5.1); SALICYLATE LEVEL 2.9 MG/DL (5.0-30.0); SODIUM LEVEL 138 MEQ/L (136-145); TOTAL PROTEIN 6.9 GM/DL (6.4-8.2)
--- OUTSIDE RECORDS SUMMARY | 2020-09-29 01:48 | CCD ---
Author Author [facility] Organization [facility] Address Unknown Phone Unavailable Care Team Providers Care Dye Room Helper Name Role Phone Talia Bruner PA Unavailable [...] is protected by Article 27-F of the [place] State Public Health law. If you continue you may have access to information: Regarding HIV / AIDS; Provided by facilities licensed or operated by the [facility] Office of Mental Health; or Provided by the [facility] Office for People With Developmental Disabilities. If such information is present, then the following [facility] mandated warning applies: This information [...] law may result in a fine or shelter sentence or both. A general authorization for the release of medical or other information is NOT sufficient authorization for further disc losure. Family History Family Member Name Family Member Gender Family Member Status Date o f Status Description Data Source(s) Unknown Unknown Problem MEDENT ([facility], [facility]) Encounters Encounter Providers Location Date Indications Data Source(s ) Extended Individual Psychotherapy - 45 min Attender: Fabiana Retana [facility] 09/09/2020 01:00:00 AM EST - 09/09/2020 01:00:00 AM EST [facility] ([facility]) Fallon Bruner PA-C: [address] [place] [address], Ph. Attender: Fallon MORGAN [facility] 09/09/2020 12:00:00 AM EST TIMOTHY ([facility]) Attender: Santana Retana 09/09/2020 12:00:00 AM EST [facility]umed[facility] ([facility]) Fallon Bruner PA-C: [address] [place] [address], Ph. Attender: Fallon MORGAN [facility] 09/03/2020 12:00:00 AM EST TIMOTHY ([facility]) Fallon Bruner PA-C: [address] [place] [address], Ph. Attender: Fallon MORGAN [facility] 09/03/2020 12:00:00 AM EST TIMOTHY ([facility]) Medications Medication Brand Name Start Date Product [...] hydroxyzine hydrochloride 50 MG Oral Tablet TIMOTHY ([facility]) Escitalopram 5 MG Oral Tablet escitalopram 5 mg tablet escit alopram 5 mg tablet completed escitalopram 5 MG Oral Tablet [facility] ([facility]) Prednisone 20 MG Oral Tablet prednisone 20 mg tablet T K 3 TS PO D prednisone 20 mg tablet TK 3 TS PO D completed prednisone 20 MG Oral Tablet TIMOT[facility] ([facility]) Prednisone 20 MG Oral Tablet prednisone 20 mg tablet T K 3 TS PO D prednisone 20 mg tablet TK 3 TS PO D completed prednisone 20 MG Oral Tablet ROSS ([facility]) Triamcinolone Acetonide 1 MG/ML Topical Cream triamcinolone acetonide 0.1 % topical cream APPLY TOPICALLY TO AFFECTED AREA BID triamcinolone acetonide 0.1 % topical cream APPLY TOPICALLY TO AFFECTED AREA BID completed triamcinolone acetonide 1 MG/ML Topical Cream [facility] ([facility]) Asenapine 10 MG Sublingual Tablet [Saphris] Saphris 10 mg sublingual tablet Saphris 10 mg sublingual tablet comple tomas asenapine 10 MG Sublingual Tablet [Saphris] TIMOTHY ([facility]) Triamcinolone Acetonide 1 MG/ML Topical Cream triamcinolone acetonide 0.1 % topical cream APPLY TOPICALLY TO AFFECTED AREA BID triamcinolone acetonide 0.1 % topical cream APPLY TOPICALLY TO AFFECTED AREA BID completed triamcinolone acetonide 1 MG/ML Topical Cream [facility] ([facility]) Escitalopram 5 MG Oral Tablet escitalopram 5 mg tablet escit alopram 5 mg tablet completed escitalopram 5 MG Oral Tablet [facility] ([facility]) 12 HR Guaifenesin 600 MG Extended Releas e Oral Tablet [Mucinex] Mucinex 600 mg tablet, extended release TK 1 T PO BID COU Mucinex 600 mg tablet, extended release TK 1 T PO BID COU completed 12 HR guaifenesin 600 MG Extended Release Oral Tablet [Mucinex] [facility] ([facility]) Naproxen 500 MG Oral Tablet naproxen 500 mg tablet TK 1 T PO BID WF naproxen 500 mg tablet TK 1 T PO BID WF completed naproxen 500 MG Oral Tablet [facility] ([facility]) 12 HR Guaifenesin 600 MG Extended Releas e Oral Tablet [Mucinex] Mucinex 600 mg tablet, extended release TK 1 T PO BID COU Mucinex 600 mg tablet, extended release TK 1 T PO BID COU completed 12 HR guaifenesin 600 MG Extended Release Oral Tablet [Mucinex] [facility] ([facility]) Asenapine 10 MG Sublingual Tablet [Saphris] Saphris 10 mg sublingual tablet Saphris 10 mg sublingual tablet comple tomas asenapine 10 MG Sublingual Tablet [Saphris] TIM[facility] ([facility]) Insurance Providers Payer name Policy type / Coverage type Policy ID Covered democrat ID Covered democrat's relationship to morel Policy Morel Plan Information EMEDNY [id number] SP [id number] O UNAVAILABLE UNAVAILA BLE EMEDNY [id number] SP [id number] NCO EPALS [id number] SP [id number] [facility] O [id number] S [id number] SELF PAY ONLY [id number] SP [id number] [facility] COMMUNITY PLAN MCDO [id number] SP [id number] MEDICAID [id number] SP [id number] MEDICAID [id number] SP [id number] MEDICAID [id number] SP [id number] [facility] COMMUNITY PLAN MCDO [id number] SP [id number] MEDICAID [id number] SP [id number] MEDICAID [id number] SP [id number] MEDICAID M [id number] S [id number] [facility] COMMUNITY PLAN MCDO [id number] SP [id number] [facility] Maintenance Organization (HMO) Self BLUE CROSS CHU PLAN [id number] SP [id number] HMO BLUE [id number] SP [id number] Problems, Conditions, and Diagnoses Code Display Name Description Problem Type Effective Dates Data Source(s) F31.9 Bipolar disorder, unspecified Unspecified Bipola r and Related Disorder Condition 09/09/2020 12:00:00 AM EST [facility] ([facility]) Surgeries/Procedures Procedure Description Date Indications Data Source(s) Extended Individual Psychotherapy - 45 min 09/09/2020 12:00:00 AM EST - 09/09/2020 12:00:00 AM EST [facility] ([facility]) Extended Individual Psychotherapy - 45 min 0 12:00:00 AM EST [facility] ([facility]) Results ID Date Data Source [id number] 08/30/2020 02:28:00 PM EST [place] Name Value Range Interpretation Code Description Data Evangelina rce(s) Supporting Document(s) SARS coronavirus 2 RNA [Presence] in Res piratory specimen by NAOMI with probe detection [place] This lab was ordered by [facility] a nd reported by [facility]. Procedure Social History Code Duration Value Status Description Data Source(s ) Smoking 09/09/2020 12:00:00 AM EST Unknown if ever smoked comp leted Unknown if ever smoked Kerline ([facility]) Patient Treatment Plan of Care Planned Activity Planned Date Details Description Data Source (s) Triamcinolone Acetonide 1 MG/ML [facility] Asenapine 10 MG Sublingual Tablet [Saphris] [facility]) Prednisone 20 MG Oral Tablet [facility] Naproxen 500 MG Oral Tablet [facility] 12 HR Guaifenesin 600 MG Extended Release Oral Tablet [Mucinex] [facility] Hydroxyzine Hydrochloride 50 MG Oral Tablet [facility] Escitalopram 5 MG Oral Tablet [facility]) Triamcinolone Acetonide 1 MG/ML Topical Cream [facility] Asenapine 10 MG Sublingual Tablet [Saphris] [facility] Prednisone 20 MG Oral Tablet [facility] 12 HR Guaifenesin 600 MG Extended Release Oral Tablet [Mucinex] [facility] Escitalopram 5 MG Oral Tablet [facility]
[2020-09-29 02:44] LABS: AMPHETAMINES LEVEL URINE POSITIVE (NEGATIVE); BARBITURATES URINE NEGATIVE (NEGATIVE); BENZODIAZEPINES URINE NEGATIVE (NEGATIVE); CANNABINOIDS URINE POSITIVE (NEGATIVE); COCAINE METABOLITE URINE NEGATIVE (NEGATIVE); METHADONE URINE NEGATIVE (NEGATIVE); OPIATES URINE NEGATIVE (NEGATIVE); PHENCYCLIDINE URINE NEGATIVE (NEGATIVE)
[2020-09-29 03:41] VITALS: BP 158/72
--- NOTE | 2020-09-30 09:55 | REP ---
INDICATION: fall. COMPARISON: 07/13/2020. TECHNIQUE: SINGLE PORTABLE AP VIEW OF THE CHEST WAS PERFORMED. FINDINGS: THERE IS NO ACUTE INFILTRATE OR PULMONARY EDEMA. LUNGS ARE CLEAR. HEART IS NOT SIGNIFICANTLY ENLARGED. MEDIASTINAL SILHOUETTE IS UNREMARKABLE. THE VISUALIZED OSSEOUS STRUCTURES ARE INTACT. IMPRESSION: NO ACUTE PULMONARY DISEASE. <Electronically signed by Carson Vidal > 09/30/20 0951
--- NOTE | 2020-09-30 09:59 | REP ---
INDICATION: fall. COMPARISON: 12/16/2015. TECHNIQUE: Five views lumbosacral spine performed. FINDINGS: Again noted is spondylolysis of L5 vertebral body with mild anterior grade 1 spondylolisthesis of L5 on S1. Tiny vertebral body spurs are present. There is mild disc space narrowing and subchondral sclerosis at L4-5 and L5-S1. Old transverse process fractures are seen on the right at the L2 and L3 levels. Minimal retrolisthesis of L4 on L5 is stable. 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 No acute fracture or dislocation. Old transverse process fractures on the right at L2 and L3. Preliminary report provided by virtual Radiology at the time of the exam. <Electronically signed by Carson Vidal > 09/30/20 0915
== END 2020-09-29 03:40 | disposition home or self-care (01) ==
LOC: M ED 00:38
DX: R45.4 Irritability and anger (principal); M43.06 Spondylolysis, lumbar region; R07.82 Intercostal pain; W10.8XXA Fall (on) (from) other stairs and steps, initial encounter; Y92.9 Unspecified place or not applicable; Y93.9 Activity, unspecified; Y99.9 Unspecified external cause status; Z88.8 Allergy status to other drugs, medicaments and biological substances
CPT/HCPCS: 36415; 71045; 72110; 80048; 80076; 80307; 84443; 85027; 99284; G0480

== ENCOUNTER 2020-10-17 06:24 | Emergency (ER) | payer MEDICAID ==
[~2020-10-17] VITALS: Ht 182.9 cm; Wt 88.6 kg
--- NOTE | 2020-10-17 08:41 | REP ---
INDICATION: fall pain, limited rom COMPARISON: None. TECHNIQUE: AP, lateral, bilateral oblique views of the right elbow. FINDINGS: No acute fracture or dislocation is appreciated. Joint spaces and surrounding soft tissues appear normal. Lateral view demonstrates normal positioning to the anterior and posterior fat pads without evidence for effusion/hemarthrosis. No subcutaneous emphysema or foreign body identified. IMPRESSION: Normal age-appropriate elbow radiographs. No acute fracture or dislocation. <Electronically signed by Brody Culp > 10/17/20 0883
--- NOTE | 2020-10-17 08:42 | REP ---
INDICATION: fall pain, limited rom COMPARISON: None. TECHNIQUE: Internal rotation, external rotation, and Y view. FINDINGS: No acute fracture or dislocation. The acromioclavicular and glenohumeral joints are intact. No periarticular calcifications or significant degenerative changes are appreciated. Sub acromial space is normal. Surrounding soft tissues are unremarkable. IMPRESSION: Normal age-appropriate right shoulder radiographs. No acute fracture or dislocation. <Electronically signed by Brody Culp > 10/17/20 [id number]
[2020-10-17 09:16] VITALS: BP 110/60
--- NOTE | 2020-10-17 09:48 | REP ---
INDICATION: fall, altered, neck pain. Repeat dictation. Preliminary report is provided at the time of the exam by ismael GARCIA. COMPARISON: Comparison study May 30, 2016.. TECHNIQUE: Helical scanning is acquired and overlapping 2 mm high resolution axial images were generated and reviewed at bone and soft tissue window settings. Coronal and sagittal multiplanar re-formations images are generated. FINDINGS: There is no evidence of cervical spine element fracture. No skull base fracture is seen. Cervical vertebral body heights are preserved. Alignment is normal. Facet joints are normally aligned bilaterally at each cervical level on multiplanar re-formations images. There is no evidence of intraspinal or paraspinal hematoma. No extra vertebral abnormality is seen. There are degenerative disc changes most pronounced at C5-6. There is more disc space narrowing at C5-6 and increased sclerosis is seen about the C5-6 disc space compared to the 2016 study although the changes are not new. Degenerative changes are noted at the articulation between the dens and anterior arch of C1 as well. IMPRESSION: Degenerative spondylosis changes more pronounced at C5-6 than on the 2016 prior study. Otherwise negative. No fracture or other acute abnormality.. <Electronically signed by Adam Rosado > 10/17/20 0939
--- NOTE | 2020-10-17 09:50 | REP ---
INDICATION: fall, altered. Repeat dictation. Preliminary report is provided at the time of the exam by ismael GARCIA. COMPARISON: Comparison head CT study 12 May 2020.. TECHNIQUE: Helical scanning is acquired. 5 mm axial images were reformatted. Coronal MPR images were generated. FINDINGS: Bone window settings demonstrate an intact bony calvarium. There is no evidence of skull fracture or incidental bony calvarial lesion. The visualized paranasal sinuses appear clear. No intraorbital abnormality is seen. On soft tissue window setting images; the lateral, third, and fourth ventricles are normal in size and position. Vidal-white differentiation pattern is normal above and below the tentorium. There are is no evidence of intracranial hemorrhage. No mass, edema, infarction, or midline shift is seen. No extra-axial fluid collection is appreciated. IMPRESSION: Negative noncontrast head CT. <Electronically signed by Adam Rosado > 10/17/20 0946
--- NOTE | 2020-10-17 09:54 | REP ---
INDICATION: fall, altered, vertebral tenderness. Repeat dictation. Preliminary report is provided at the time of the exam by ismael GARCIA. COMPARISON: Comparison is made with images from CT study of the abdomen and pelvis January 12, 2016.. TECHNIQUE: Helical scanning is acquired and 4 mm axial images re-formatted. Coronal and sagittal MPR images are provided. FINDINGS: Lumbar vertebral body heights are preserved. No fracture or collapse is seen. There are bilateral pars interarticularis defects at L5 and there is a grade 1 L5-S1 spondylolisthesis measuring 3 mm. This is unchanged. There is a minimal retrolisthesis at L4-5 with degenerative disc disease at L4-5. A vacuum phenomena is seen. The vacuum phenomenon was not present previously but the retrolisthesis and degenerative disc changes are is unchanged. There is a small central focal disc protrusion at L4-5 and canal size is mildly narrowed at 4 5. The more proximal lumbar disc levels are unremarkable. At L5-S1 there is no evidence of disc protrusion. There is mild bilateral foraminal narrowing from the spondylolisthesis. IMPRESSION: Bilateral pars defects at L5 with a grade 1 3 mm stable L5-S1 spondylolisthesis. Progressive degenerative disc changes L4-5 with small central focal disc protrusion suggested at L4-5. Mild thecal sac narrowing at L4-5.1 <Electronically signed by Adam Rosado > 10/17/20 0756
--- NOTE | 2020-10-19 10:29 | ED PDOC ---
Post-Departure Follow-Up certified letter sent to pt re formal read of ct ls spine. needs fu. obtain pcp name and fax. if no pcp refer to [facility] and fax. also refer to dr crawley and fax. Kevin Alvarez MD Oct 19, 2020 10:29
== END 2020-10-17 09:23 | disposition home or self-care (01) ==
LOC: M ED 06:24
DX: M25.511 Pain in right shoulder (principal); M51.26 Other intervertebral disc displacement, lumbar region; S50.311A Abrasion of right elbow, initial encounter; W01.0XXA Fall on same level from slipping, tripping and stumbling without subsequent striking against object, initial encounter; Y92.018 Other place in single-family (private) house as the place of occurrence of the external cause; I10 Essential (primary) hypertension; F33.9 Major depressive disorder, recurrent, unspecified; F41.9 Anxiety disorder, unspecified; Z87.09 Personal history of other diseases of the respiratory system; Z79.899 Other long term (current) drug therapy; Z88.8 Allergy status to other drugs, medicaments and biological substances

== ENCOUNTER → 2020-10-23 | Outpatient (REF) | payer MEDICAID ==
[2020-10-23 13:45] LABS: BASO # 0.1 10^3/uL (0.0-0.2); BASO % 0.8 % (0.0-1.0); EOS # 0.2 10^3/uL (0.0-0.5); EOS % 2.8 % (0.0-3.0); HEMATOCRIT 42.9 % (42.0-52.0); HEMOGLOBIN 13.9 g/dl (13.5-17.5); LYMPH # 1.5 10^3/uL (1.5-5.0); MEAN CORPUSCULAR HEMOGLOBIN 29.8 pg (27.0-33.0); MEAN CORPUSCULAR HGB CONC 32.4 g/dl (32.0-36.5); MEAN CORPUSCULAR VOLUME 92.1 fl (80.0-96.0); MONO # 0.4 10^3/uL (0.0-0.8); MONO % 5.2 % (0.0-5.0); NEUTROPHILS # 5.5 10^3/uL (1.5-8.5); NEUTROPHILS % 71.8 % (36.0-66.0); PLATELET COUNT, AUTOMATED 227 10^3/uL (150-450); RED BLOOD COUNT 4.66 10^6/uL (4.30-6.10); WHITE BLOOD COUNT 7.6 10^3/uL (4.0-10.0)
[2020-10-23 14:41] LABS: ALBUMIN 3.8 GM/DL (3.2-5.2); ALT/SGPT 23 U/L (12-78); BILIRUBIN,TOTAL 0.5 MG/DL (0.2-1.0); BLOOD UREA NITROGEN 10 MG/DL (7-18); CARBON DIOXIDE LEVEL 28 MEQ/L (21-32); CHLORIDE LEVEL 103 MEQ/L (98-107); CHOLESTEROL LEVEL 171 MG/DL (<200); CREATININE FOR GFR 0.95 MG/DL (0.70-1.30); GLOMERULAR FILTRATION RATE > 60.0 (>56); GLUCOSE, FASTING 144 MG/DL (70-100); HDL CHOLESTEROL 41 MG/DL (>40); LDL CHOLESTEROL 107 MG/DL (<100); NON-HDL-C 130 MG/DL; POTASSIUM SERUM 4.2 MEQ/L (3.5-5.1); SODIUM LEVEL 139 MEQ/L (136-145); TOTAL PROTEIN 7.4 GM/DL (6.4-8.2); TRIGLYCERIDES LEVEL 116 MG/DL (<150)
== END ==
LOC: M LAB REF 13:33
PROVIDERS: ATTEND Physician Assistant
DX: Z13.220 Encounter for screening for lipoid disorders (principal); F20.9 Schizophrenia, unspecified; Z12.5 Encounter for screening for malignant neoplasm of prostate

== ENCOUNTER 2020-12-14 18:37 | Emergency (ER) | payer MEDICAID ==
[~2020-12-14] VITALS: Ht 182.9 cm; Wt 84.1 kg
[2020-12-14 18:45] VITALS: BP 145/85
== END 2020-12-14 19:46 | disposition home or self-care (01) ==
LOC: M ED 18:37
DX: Z04.6 Encounter for general psychiatric examination, requested by authority (principal); R45.850 Homicidal ideations; Z79.899 Other long term (current) drug therapy; Z88.8 Allergy status to other drugs, medicaments and biological substances; Z88.5 Allergy status to narcotic agent; Z86.59 Personal history of other mental and behavioral disorders

== ENCOUNTER 2020-12-17 09:10 | Inpatient (IN) | payer MEDICAID, OTHER ==
[~2020-12-17] VITALS: Ht 182.9 cm; Wt 81.8 kg
[2020-12-17] MEDS ORDERED: diphenhydrAMINE 25MG CAP PO ONE (09:30)
[2020-12-17] MEDS ORDERED: predniSONE 20 MG TAB PO ONE (09:30)
[2020-12-17 10:06] LABS: HEMATOCRIT 39.5 % (42.0-52.0); HEMOGLOBIN 12.9 g/dl (13.5-17.5); MEAN CORPUSCULAR HEMOGLOBIN 30.1 pg (27.0-33.0); MEAN CORPUSCULAR HGB CONC 32.7 g/dl (32.0-36.5); MEAN CORPUSCULAR VOLUME 92.1 fl (80.0-96.0); PLATELET COUNT, AUTOMATED 233 10^3/uL (150-450); RED BLOOD COUNT 4.29 10^6/uL (4.30-6.10); WHITE BLOOD COUNT 8.2 10^3/uL (4.0-10.0)
[2020-12-17 10:27] LABS: AMPHETAMINES LEVEL URINE POSITIVE (NEGATIVE); BARBITURATES URINE NEGATIVE (NEGATIVE); BENZODIAZEPINES URINE NEGATIVE (NEGATIVE); CANNABINOIDS URINE POSITIVE (NEGATIVE); COCAINE METABOLITE URINE NEGATIVE (NEGATIVE); METHADONE URINE NEGATIVE (NEGATIVE); OPIATES URINE NEGATIVE (NEGATIVE); PHENCYCLIDINE URINE NEGATIVE (NEGATIVE)
[2020-12-17 10:38] LABS: ACETAMINOPHEN LEVEL < 2.0 UG/ML (10.0-30.0); ALBUMIN 3.4 GM/DL (3.2-5.2); ALT/SGPT 23 U/L (12-78); BILIRUBIN,DIRECT 0.1 MG/DL (0.0-0.2); BILIRUBIN,TOTAL 0.4 MG/DL (0.2-1.0); BLOOD UREA NITROGEN 18 MG/DL (7-18); CALCIUM LEVEL 8.6 MG/DL (8.5-10.1); CARBON DIOXIDE LEVEL 27 MEQ/L (21-32); CHLORIDE LEVEL 107 MEQ/L (98-107); CREATININE FOR GFR 1.09 MG/DL (0.70-1.30); ETHYL ALCOHOL (ETHANOL) < 0.003 % (0.000-0.010); GLOMERULAR FILTRATION RATE > 60.0 (>56); GLUCOSE, FASTING 82 MG/DL (70-100); POTASSIUM SERUM 4.6 MEQ/L (3.5-5.1); SALICYLATE LEVEL < 1.7 MG/DL (5.0-30.0); SODIUM LEVEL 141 MEQ/L (136-145); THYROID STIMULATING HORMONE 0.751 uIU/ML (0.358-3.740); TOTAL PROTEIN 6.6 GM/DL (6.4-8.2)
[2020-12-17 12:07] LABS: RSV AMPLIFICATION NEGATIVE (NEGATIVE)
[2020-12-17] MEDS ORDERED: LORazepam 2 MG TAB PO PRN (16:30)
[2020-12-17] MEDS ORDERED: hydrOXYzine 50 MG TAB PO ONE (18:40)
[2020-12-17] MEDS ORDERED: ACETAMINOPHEN TAB 650MG DOSE (2X325MG) PO ONE (18:40)
[2020-12-17] MEDS ORDERED: chlorproMAZINE 25 MG TABLET PO ONE (20:35)
[2020-12-17] MEDS ORDERED: ASEN10TA SL (20:51)
[2020-12-17] MEDS ORDERED: CHLOR50TA PO (20:51)
[2020-12-17] MEDS: THIAMINE 100 MG TAB PO SCH (21:47)
[2020-12-18] MEDS ORDERED: MULTIVITAMINS/MINERALS THERAP 1 TAB PO SCH (09:00)
[2020-12-18] MEDS ORDERED: FOLIC ACID 1 MG TAB PO SCH (09:00)
[2020-12-18] MEDS ORDERED: chlorproMAZINE 25 MG TABLET PO ONE (09:05)
[2020-12-18] MEDS: THIAMINE 100 MG TAB PO SCH ×2 (09:16→21:30)
[2020-12-18] MEDS ORDERED: ACETAMINOPHEN TAB 650MG DOSE (2X325MG) PO ONE (13:25)
[2020-12-18] MEDS ORDERED: MAALOX 30 ML SUSP *UDC PO PRN (15:15)
[2020-12-18] MEDS ORDERED: ACETAMINOPHEN TAB 650MG DOSE (2X325MG) PO PRN (15:15)
[2020-12-18] MEDS ORDERED: MOM 30ML SUSPENSION UDC PO PRN (15:15)
[2020-12-18 17:37] VITALS: BP 134/90
[2020-12-18] MEDS: OLANZapine 10 MG TAB PO SCH (21:30)
[2020-12-18] MEDS: chlorproMAZINE 25 MG TABLET PO SCH (21:31)
[2020-12-19] MEDS: chlorproMAZINE 25 MG TABLET PO SCH ×2 (09:56→22:17)
[2020-12-19 17:08] VITALS: BP 140/68
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
--- NOTE | 2020-12-19 19:03 | REP ---
INDICATION: pain of right toes COMPARISON: None. TECHNIQUE: There are four views performed portably. FINDINGS: There is no fracture or dislocation. Mineralization and joint spaces are normal. There are no calcifications or foreign bodies. IMPRESSION: Essentially negative portable right foot. . <Electronically signed by Carson Arreguin > 12/19/20 [id number]
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
[2020-12-19] MEDS: OLANZapine 10 MG TAB PO SCH (22:16)
[2020-12-20] MEDS: chlorproMAZINE 25 MG TABLET PO SCH (08:55)
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
== END 2020-12-20 10:05 | disposition home or self-care (01) | DRG 753 ==
LOC: M ED 09:10 → M ED INP 12-18 15:15 → M PSY 12-18 16:35
PROVIDERS: ADMIT Psychiatry & Neurology Psychiatry; ATTEND Psychiatry & Neurology Psychiatry
DX: F31.9 Bipolar disorder, unspecified (principal); F15.10 Other stimulant abuse, uncomplicated; F12.10 Cannabis abuse, uncomplicated; F17.210 Nicotine dependence, cigarettes, uncomplicated; Z56.0 Unemployment, unspecified; R45.850 Homicidal ideations; Z79.899 Other long term (current) drug therapy; Z88.8 Allergy status to other drugs, medicaments and biological substances; Z62.811 Personal history of psychological abuse in childhood; Z91.5 Personal history of self-harm; M25.571 Pain in right ankle and joints of right foot; U07.1 COVID-19

== ENCOUNTER → 2023-05-31 | Outpatient (REF) | payer MEDICAID ==
[~2023-05-31] MED LIST changes: +ASEN10TA SL
[2023-05-31 17:07] LABS: BASO # 0.1 10^3/uL (0.0-0.2); EOS # 0.2 10^3/uL (0.0-0.5); EOS % 3.8 % (0.0-3.0); HEMATOCRIT 45.1 % (42.0-52.0); HEMOGLOBIN 14.8 g/dl (13.5-17.5); LYMPH # 1.7 10^3/uL (1.5-5.0); LYMPH % 27.7 % (24.0-44.0); MEAN CORPUSCULAR HEMOGLOBIN 29.1 pg (27.0-33.0); MEAN CORPUSCULAR HGB CONC 32.8 g/dl (32.0-36.5); MEAN CORPUSCULAR VOLUME 88.6 fl (80.0-96.0); MONO # 0.4 10^3/uL (0.0-0.8); NEUTROPHILS # 3.8 10^3/uL (1.5-8.5); NEUTROPHILS % 59.9 % (36.0-66.0); PLATELET COUNT, AUTOMATED 214 10^3/uL (150-450); RED BLOOD COUNT 5.09 10^6/uL (4.30-6.10); WHITE BLOOD COUNT 6.3 10^3/uL (4.0-10.0)
[2023-05-31 17:36] LABS: ALBUMIN 3.8 G/DL (3.2-5.2); ALKALINE PHOSPHATASE 72 U/L (46-116); ALT/SGPT 24 U/L (7.0-40); AST/SGOT 11 U/L (<34); BILIRUBIN,TOTAL 0.4 MG/DL (0.3-1.2); BLOOD UREA NITROGEN 14 MG/DL (9-23); CALCIUM LEVEL 8.8 MG/DL (8.5-10.1); CARBON DIOXIDE LEVEL 29 MMOL/L (20-31); CHLORIDE LEVEL 104 MMOL/L (98-107); CHOLESTEROL LEVEL 244 MG/DL (<200); CREATININE FOR GFR 0.98 MG/DL (0.70-1.30); GLOMERULAR FILTRATION RATE > 60.0 (>56); GLUCOSE, FASTING 99 MG/DL (60-100); HDL CHOLESTEROL 33.4 MG/DL (>40); LDL CHOLESTEROL 158.6 MG/DL (<100); NON-HDL-C 210.6 MG/DL; POTASSIUM SERUM 4.6 MMOL/L (3.5-5.1); PROSTATIC SPECIFIC AG MONITOR 0.28 NG/ML (< 4.00); SODIUM LEVEL 139 MMOL/L (136-145); THYROID STIMULATING HORMONE 3.099 uIU/ML (0.55-4.78); TOTAL 25(OH) VITAMIN D 29.8 NG/ML (20.0-100.0); TOTAL PROTEIN 7.6 G/DL (5.7-8.2); TRIGLYCERIDES LEVEL 260 MG/DL (<150)
== END ==
LOC: M LAB REF 16:28
PROVIDERS: ATTEND Nurse Practitioner Family
DX: Z11.9 Encounter for screening for infectious and parasitic diseases, unspecified (principal); E55.9 Vitamin D deficiency, unspecified

== ENCOUNTER → 2023-06-01 | Outpatient (REF) | payer MEDICAID | LOC: M LAB REF 09:35 | PROVIDERS: ATTEND Nurse Practitioner Family | DX: R19.7 Diarrhea, unspecified (principal) ==

== ENCOUNTER → 2023-10-07 | Outpatient (REF) | payer MEDICAID | LOC: M LAB REF 17:30 | PROVIDERS: ATTEND Surgery | DX: D48.5 Neoplasm of uncertain behavior of skin (principal) ==

== ENCOUNTER → 2023-11-26 | Outpatient (REF) | payer OTHER ==
[2023-11-26 13:54] LABS: CHOLESTEROL RISK RATIO 7.69 (<5); HDL CHOLESTEROL 28.6 MG/DL (>40); LDL CHOLESTEROL 143.4 MG/DL (<100); NON-HDL-C 191.4 MG/DL
== END ==
LOC: M LAB REF 12:13
PROVIDERS: ATTEND Nurse Practitioner Family
DX: E78.00 Pure hypercholesterolemia, unspecified (principal)

== ENCOUNTER → 2023-12-02 | Outpatient (CLI) | payer OTHER ==
[~2023-12-02] MED LIST changes: +GLUCAGON INJ 1MG VIAL As Ordered ONE; +ISOVUE-370 76% 100ML VIAL As Ordered ONE; +NEULUMEX 0.1% SUSPENSION 450ML BOTTLE (FORMERLY VOLUMEN) As Ordered ONE
== END ==
LOC: M RAD 11:19
PROVIDERS: ATTEND Physician Assistant Medical
DX: R19.4 Change in bowel habit (principal); R19.7 Diarrhea, unspecified; K57.90 Diverticulosis of intestine, part unspecified, without perforation or abscess without bleeding
CPT/HCPCS: 74177; J1610; Q9967

== ENCOUNTER → 2024-01-07 | Outpatient (REF) | payer OTHER ==
[~2024-01-07] MED LIST changes: -GLUCAGON INJ 1MG VIAL As Ordered ONE; -ISOVUE-370 76% 100ML VIAL As Ordered ONE; -NEULUMEX 0.1% SUSPENSION 450ML BOTTLE (FORMERLY VOLUMEN) As Ordered ONE
[2024-01-07 12:44] LABS: ALBUMIN 3.7 G/DL (3.2-5.2); BILIRUBIN,DIRECT 0.2 MG/DL (<0.4); BILIRUBIN,TOTAL 0.6 MG/DL (0.3-1.2); CHOLESTEROL RISK RATIO 5.76 (<5); HDL CHOLESTEROL 28.8 MG/DL (>40); LDL CHOLESTEROL 100.6 MG/DL (<100); NON-HDL-C 137.2 MG/DL; TOTAL PROTEIN 7.2 G/DL (5.7-8.2)
== END ==
LOC: M LAB REF 11:34
PROVIDERS: ATTEND Nurse Practitioner Family
DX: E78.2 Mixed hyperlipidemia (principal)

== ENCOUNTER 2024-04-11 08:03 | Day surgery (SDC) | payer OTHER ==
[~2024-04-11] VITALS: Ht 182.9 cm; Wt 104.5 kg
[~2024-04-11 08:03] MED LIST changes: +LEXA1TAB PO; +LIPI10TA PO; +MIRT-89 PO
[2024-04-11] MEDS: NS 1,000 ML IV ONE (08:46)
[2024-04-11] MEDS ORDERED: propofoL 200 MG/20 ML VIAL As Ordered ONE (08:56)
[2024-04-11] MEDS ORDERED: LIDOCAINE 2% 100MG/5ML SDV (FOR ANES.) As Ordered ONE (08:56)
[2024-04-11] MEDS ORDERED: GLYCOPYRROLATE INJ 0.2 MG/ML 2 ML VIAL As Ordered ONE (10:03)
[2024-04-11 10:19] VITALS: TEMP 97.4
[2024-04-11 10:35] VITALS: BP 134/78; O2SAT 99
== END 2024-04-11 10:44 | disposition home or self-care (01) ==
LOC: M OPP 08:03
PROVIDERS: ATTEND Internal Medicine Gastroenterology
DX: K63.5 Polyp of colon (principal); K64.8 Other hemorrhoids; K57.30 Diverticulosis of large intestine without perforation or abscess without bleeding; R19.4 Change in bowel habit; Z79.02 Long term (current) use of antithrombotics/antiplatelets; Z79.899 Other long term (current) drug therapy; Z88.8 Allergy status to other drugs, medicaments and biological substances; Z91.048 Other nonmedicinal substance allergy status
CPT/HCPCS: 45380; 45385; 88305; J1596

== ENCOUNTER → 2024-06-05 | Outpatient (REF) | payer OTHER ==
[2024-06-05 18:37] LABS: CHOLESTEROL RISK RATIO 5.85 (<5); HDL CHOLESTEROL 28.2 MG/DL (>40); LDL CHOLESTEROL 81.8 MG/DL (<100); NON-HDL-C 136.8 MG/DL; PSA SCREENING 0.26 NG/ML (< 4.00)
== END ==
LOC: M LAB REF 16:44
PROVIDERS: ATTEND Nurse Practitioner Family
DX: E78.00 Pure hypercholesterolemia, unspecified (principal); Z12.5 Encounter for screening for malignant neoplasm of prostate

== ENCOUNTER 2024-09-05 02:01 | Inpatient (IN) | payer MEDICAID, OTHER ==
[~2024-09-05] VITALS: Ht 182.9 cm; Wt 102.2 kg
[2024-09-05 02:54] LABS: ETHYL ALCOHOL (ETHANOL) < 0.003 % (0.000-0.010)
[2024-09-05 02:56] LABS: ALBUMIN 3.9 G/DL (3.2-5.2); ALKALINE PHOSPHATASE 77 U/L (40-129); ALT/SGPT 78 U/L (7.0-40); AST/SGOT 81 U/L (<34); BILIRUBIN,DIRECT 0.2 MG/DL (<0.4); BILIRUBIN,TOTAL 0.4 MG/DL (0.3-1.2); BLOOD UREA NITROGEN 10 MG/DL (9-23); CALCIUM LEVEL 8.9 MG/DL (8.5-10.1); CARBON DIOXIDE LEVEL 27 MMOL/L (20-31); CHLORIDE LEVEL 105 MMOL/L (98-107); CREATININE FOR GFR 0.89 MG/DL (0.70-1.30); GLOMERULAR FILTRATION RATE > 60.0 (>56); GLUCOSE, FASTING 89 MG/DL (60-100); POTASSIUM SERUM 3.9 MMOL/L (3.5-5.1); SALICYLATE LEVEL < 3.0 MG/DL (<30); SODIUM LEVEL 140 MMOL/L (136-145); TOTAL PROTEIN 7.5 G/DL (5.7-8.2)
[2024-09-05 02:58] LABS: THYROID STIMULATING HORMONE 3.885 uIU/ML (0.55-4.78)
[2024-09-05 03:09] LABS: HEMATOCRIT 35.1 % (42.0-52.0); HEMOGLOBIN 11.5 g/dl (13.5-17.5); MEAN CORPUSCULAR HEMOGLOBIN 30.1 pg (27.0-33.0); MEAN CORPUSCULAR HGB CONC 32.8 g/dl (32.0-36.5); MEAN CORPUSCULAR VOLUME 91.9 fl (80.0-96.0); PLATELET COUNT, AUTOMATED 309 10^3/uL (150-450); RED BLOOD COUNT 3.82 10^6/uL (4.30-6.10); WHITE BLOOD COUNT 7.3 10^3/uL (4.0-10.0)
[2024-09-05 05:10] LABS: AMPHETAMINES LEVEL URINE NEGATIVE (NEGATIVE); BARBITURATES URINE NEGATIVE (NEGATIVE); BENZODIAZEPINES URINE NEGATIVE (NEGATIVE); COCAINE METABOLITE URINE NEGATIVE (NEGATIVE); METHADONE URINE NEGATIVE (NEGATIVE); OPIATES URINE NEGATIVE (NEGATIVE); PHENCYCLIDINE URINE NEGATIVE (NEGATIVE)
[2024-09-05 05:13] LABS: CANNABINOIDS URINE POSITIVE (NEGATIVE)
[2024-09-05] MEDS ORDERED: ACETAMINOPHEN 325 MG TAB PO PRN (07:20)
[2024-09-05] MEDS ORDERED: OLANZapine ORAL DISINTEGRATING TAB 5MG PO PRN (07:20)
[2024-09-05] MEDS ORDERED: MAALOX 30 ML SUSP *UDC PO PRN (07:20)
[2024-09-05] MEDS ORDERED: diphenhydrAMINE 25MG CAP PO PRN (07:20)
[2024-09-05] MEDS ORDERED: MOM 30ML SUSPENSION UDC PO PRN (07:20)
[2024-09-05] MEDS: NEOSPORIN TOP OINT 15GM TOP SCH (09:00)
[2024-09-05] MEDS ORDERED: MIRT-10 PO (09:26)
[2024-09-05] MEDS ORDERED: HOME MED LIST COMPLETE! XX SCH (09:30)
[2024-09-05] MEDS: NICOTINE 14 MG/24 HR TRANSDERMAL TD SCH (09:30)
[2024-09-05 09:45] VITALS: BP 134/96; TEMP 97.5; O2SAT 98
[2024-09-05 17:27] VITALS: BP 139/87; TEMP 98.6; O2SAT 97
[2024-09-05] MEDS: IBUPROFEN 400MG TAB PO PRN (17:53)
[2024-09-06 06:27] VITALS: BP 125/81; TEMP 96.8; O2SAT 99
[2024-09-06] MEDS: ESCITALOPRAM OXALATE 10 MG TAB (LEXAPRO) PO SCH (09:26)
[2024-09-06] MEDS: ATORVASTATIN 10 MG TAB PO SCH (10:03)
[2024-09-06] MEDS: MUPIROCIN 2% OINT 22 GM TUBE TOP SCH (12:48)
[2024-09-06] MEDS: NYSTATIN 500,000U/5ML SUSP UDC SS SCH (15:38)
[2024-09-06 16:16] VITALS: BP 140/80; TEMP 97.8; O2SAT 97
[2024-09-06] MEDS: IBUPROFEN 400MG TAB PO PRN (20:04)
[2024-09-06] MEDS: MIRTAZAPINE 15 MG TAB PO SCH (22:17)
[2024-09-07 06:28] VITALS: BP 141/94; TEMP 97.2; O2SAT 99
[2024-09-07 16:08] VITALS: BP 140/84; TEMP 98.2; O2SAT 99
[2024-09-08 06:42] VITALS: BP 132/70; TEMP 97.2; O2SAT 98
[2024-09-08] MEDS ORDERED: NYST-38 SS (08:23)
[2024-09-08] MEDS ORDERED: NEOM28OI TOP (08:23)
[2024-09-08] MEDS: ACETAMINOPHEN 500 MG TAB PO PRN (08:34)
== END 2024-09-08 11:36 | disposition home or self-care (01) | DRG 753 ==
LOC: M ED 02:01 → M ED INP 07:16 → M PSY 09:41
PROVIDERS: ADMIT Psychiatry & Neurology Neurology; ATTEND Psychiatry & Neurology Psychiatry
DX: F31.9 Bipolar disorder, unspecified (principal); F43.10 Post-traumatic stress disorder, unspecified; R21 Rash and other nonspecific skin eruption; B37.0 Candidal stomatitis; F12.20 Cannabis dependence, uncomplicated; E78.5 Hyperlipidemia, unspecified; D64.9 Anemia, unspecified; R45.851 Suicidal ideations; F17.200 Nicotine dependence, unspecified, uncomplicated; F10.10 Alcohol abuse, uncomplicated; Z91.51 Personal history of suicidal behavior; Z62.810 Personal history of physical and sexual abuse in childhood; Z59.00 Homelessness unspecified; Z56.0 Unemployment, unspecified; Z79.899 Other long term (current) drug therapy; Z88.8 Allergy status to other drugs, medicaments and biological substances

== ENCOUNTER 2024-11-05 02:10 | Inpatient (IN) | payer MEDICAID ==
[~2024-11-05] VITALS: Ht 182.9 cm; Wt 88.6 kg
[~2024-11-05 02:10] MED LIST changes: +MIRT-10 PO; +NEOM28OI TOP; +NYST-38 SS
[2024-11-05 03:03] LABS: HEMATOCRIT 36.1 % (42.0-52.0); HEMOGLOBIN 11.5 g/dl (13.5-17.5); MEAN CORPUSCULAR HEMOGLOBIN 28.6 pg (27.0-33.0); MEAN CORPUSCULAR HGB CONC 31.9 g/dl (32.0-36.5); MEAN CORPUSCULAR VOLUME 89.8 fl (80.0-96.0); PLATELET COUNT, AUTOMATED 311 10^3/uL (150-450); RED BLOOD COUNT 4.02 10^6/uL (4.30-6.10); WHITE BLOOD COUNT 9.3 10^3/uL (4.0-10.0)
[2024-11-05 03:39] LABS: ETHYL ALCOHOL (ETHANOL) 0.004 % (0.000-0.010)
[2024-11-05 03:41] LABS: ALBUMIN 3.7 G/DL (3.2-5.2); ALKALINE PHOSPHATASE 82 U/L (40-129); ALT/SGPT 34 U/L (7.0-40); AST/SGOT 23 U/L (<34); BILIRUBIN,DIRECT 0.2 MG/DL (<0.4); BILIRUBIN,TOTAL 0.5 MG/DL (0.3-1.2); BLOOD UREA NITROGEN 16 MG/DL (9-23); CARBON DIOXIDE LEVEL 25 MMOL/L (20-31); CHLORIDE LEVEL 107 MMOL/L (98-107); CREATININE FOR GFR 0.82 MG/DL (0.70-1.30); GLOMERULAR FILTRATION RATE > 60.0 (>56); GLUCOSE, FASTING 90 MG/DL (60-100); POTASSIUM SERUM 4.4 MMOL/L (3.5-5.1); SALICYLATE LEVEL < 3.0 MG/DL (<30); SODIUM LEVEL 141 MMOL/L (136-145); TOTAL PROTEIN 7.3 G/DL (5.7-8.2)
[2024-11-05 03:43] LABS: THYROID STIMULATING HORMONE 3.598 uIU/ML (0.55-4.78)
[2024-11-05 05:32] LABS: AMPHETAMINES LEVEL URINE NEGATIVE (NEGATIVE); BARBITURATES URINE NEGATIVE (NEGATIVE); BENZODIAZEPINES URINE NEGATIVE (NEGATIVE); COCAINE METABOLITE URINE NEGATIVE (NEGATIVE); METHADONE URINE NEGATIVE (NEGATIVE); OPIATES URINE NEGATIVE (NEGATIVE); PHENCYCLIDINE URINE NEGATIVE (NEGATIVE)
[2024-11-05 05:35] LABS: CANNABINOIDS URINE POSITIVE (NEGATIVE)
[2024-11-05] MEDS ORDERED: MED REC CURRENTLY UNOBTAINABLE XX SCH (06:20)
[2024-11-05] MEDS ORDERED: HOME MED LIST COMPLETE! XX SCH (08:50)
[2024-11-05] MEDS ORDERED: OLANZapine 5 MG TAB PO PRN (12:05)
[2024-11-05] MEDS ORDERED: MAALOX 30 ML SUSP *UDC PO PRN (12:05)
[2024-11-05] MEDS ORDERED: MOM 30ML SUSPENSION UDC PO PRN (12:05)
[2024-11-05] MEDS ORDERED: LORazepam 1 MG TAB PO PRN (12:05)
[2024-11-05 15:47] VITALS: BP 139/82; TEMP 98.6; O2SAT 98
[2024-11-05] MEDS: ACETAMINOPHEN 325 MG TAB PO PRN (20:27)
[2024-11-06 06:20] VITALS: BP 125/90; TEMP 97.3; O2SAT 95
[2024-11-06] MEDS: NICOTINE 14 MG/24 HR TRANSDERMAL TD SCH (08:10)
[2024-11-06] MEDS: ESCITALOPRAM OXALATE 10 MG TAB (LEXAPRO) PO SCH (09:13)
[2024-11-06 15:00] VITALS: BP 142/84
[2024-11-06 15:09] VITALS: BP 142/84; TEMP 98.8; O2SAT 98
[2024-11-06] MEDS ORDERED: SUMAtriptan SUCCINATE 6MG/0.5ML VIAL SC PRN (18:20)
[2024-11-06] MEDS: SUMAtriptan SUCCINATE 50MG TABLET PO PRN (20:40)
[2024-11-06 22:00] VITALS: BP 146/78
[2024-11-07 06:33] VITALS: BP 121/67; TEMP 97; O2SAT 98
[2024-11-07 07:39] VITALS: BP 139/75; TEMP 97.5; O2SAT 99
[2024-11-07 15:15] VITALS: BP 126/82; TEMP 97.5; O2SAT 98
[2024-11-07 15:55] VITALS: BP 145/95; TEMP 97.5; O2SAT 98
[2024-11-07] MEDS: CYCLOBENZAPRINE 10MG TABLET PO PRN (20:23)
[2024-11-07] MEDS: zolPIDEM TARTRATE 5 MG TAB PO PRN (22:12)
[2024-11-08] VITALS: BP 144/86
[2024-11-08 06:17] VITALS: BP 121/70; TEMP 97.1; O2SAT 99
[2024-11-08 07:35] VITALS: BP 141/73; TEMP 97.6; O2SAT 99
[2024-11-08] MEDS: diphenhydrAMINE 25MG CAP PO PRN (09:15)
[2024-11-08 15:30] VITALS: BP 138/78; TEMP 97.1; O2SAT 99
[2024-11-08 18:19] VITALS: BP 133/80; TEMP 97.4
[2024-11-08 23:30] VITALS: BP 137/85
[2024-11-09 06:40] VITALS: BP 125/81; TEMP 98.4; O2SAT 98
[2024-11-09] MEDS: GABAPENTIN 300 MG CAP PO SCH (09:34)
[2024-11-09 16:40] VITALS: BP 136/97; TEMP 98.1; O2SAT 98
[2024-11-10 06:51] VITALS: BP 116/65; TEMP 97.3; O2SAT 99
[2024-11-10 17:27] VITALS: BP 135/84; TEMP 98.2; O2SAT 99
[2024-11-11 06:40] VITALS: BP 134/89; TEMP 97; O2SAT 99
[2024-11-11 15:54] VITALS: BP 125/74; TEMP 98.1; O2SAT 98
[2024-11-12 06:26] VITALS: BP 133/72; TEMP 97.1; O2SAT 97
[2024-11-12 15:52] VITALS: BP 121/71; TEMP 97.7; O2SAT 98
[2024-11-13 06:24] VITALS: BP 146/88; TEMP 97.6; O2SAT 96
[2024-11-13 16:45] VITALS: BP 140/92; TEMP 98.1; O2SAT 98
[2024-11-14 06:54] VITALS: BP 119/73; TEMP 97.1; O2SAT 99
[2024-11-14 15:40] VITALS: BP 141/82; TEMP 97.9; O2SAT 98
[2024-11-15 06:25] VITALS: BP 147/70; TEMP 96.8; O2SAT 99
[2024-11-15 16:57] VITALS: BP 146/77; TEMP 97.9; O2SAT 98
[2024-11-16 06:26] VITALS: BP 130/77; TEMP 97.4; O2SAT 98
[2024-11-16 16:00] VITALS: BP 142/85; TEMP 98.1; O2SAT 98
[2024-11-17 06:56] VITALS: BP 133/70; TEMP 97.3; O2SAT 99
[2024-11-17] MEDS ORDERED: HALO5TAB33 PO (11:28)
[2024-11-17] MEDS ORDERED: LEXA1TAB PO (11:28)
[2024-11-17] MEDS ORDERED: CYCL10TA20 PO (11:28)
[2024-11-17] MEDS ORDERED: AMBI5TAB PO (11:28)
[2024-11-17] MEDS ORDERED: GABA-1172 PO (11:28)
[2024-11-17] MEDS ORDERED: AMBI10TA PO (14:37)
== END 2024-11-17 13:43 | disposition home or self-care (01) | DRG 753 ==
LOC: M ED 02:10 → M ED INP 12:02 → M PSY 12:52
PROVIDERS: ADMIT Internal Medicine; ATTEND Internal Medicine
DX: F31.64 Bipolar disorder, current episode mixed, severe, with psychotic features (principal); R45.850 Homicidal ideations; F43.10 Post-traumatic stress disorder, unspecified; F41.9 Anxiety disorder, unspecified; F60.2 Antisocial personality disorder; M54.2 Cervicalgia; G89.29 Other chronic pain; M25.519 Pain in unspecified shoulder; F17.210 Nicotine dependence, cigarettes, uncomplicated; F10.10 Alcohol abuse, uncomplicated; F12.10 Cannabis abuse, uncomplicated; Z62.810 Personal history of physical and sexual abuse in childhood; Z56.0 Unemployment, unspecified; Z59.01 Sheltered homelessness; Z88.8 Allergy status to other drugs, medicaments and biological substances

== ENCOUNTER 2024-11-26 22:55 | Inpatient (IN) | payer MEDICAID, OTHER ==
[~2024-11-26] VITALS: Ht 182.9 cm; Wt 94.0 kg
[~2024-11-26 22:55] MED LIST changes: +AMBI10TA PO; +AMBI5TAB PO; +CYCL10TA20 PO; +GABA-1172 PO; +HALO5TAB33 PO
[2024-11-27 00:29] LABS: HEMOGLOBIN 11.8 g/dl (13.5-17.5); MEAN CORPUSCULAR HEMOGLOBIN 28.8 pg (27.0-33.0); MEAN CORPUSCULAR HGB CONC 32.8 g/dl (32.0-36.5); MEAN CORPUSCULAR VOLUME 87.8 fl (80.0-96.0); PLATELET COUNT, AUTOMATED 314 10^3/uL (150-450); WHITE BLOOD COUNT 8.5 10^3/uL (4.0-10.0)
[2024-11-27 00:34] LABS: ETHYL ALCOHOL (ETHANOL) 0.003 % (0.000-0.010)
[2024-11-27 00:36] LABS: ALBUMIN 3.7 G/DL (3.2-5.2); ALKALINE PHOSPHATASE 73 U/L (40-129); ALT/SGPT 29 U/L (7.0-40); AST/SGOT 24 U/L (<34); BILIRUBIN,DIRECT 0.2 MG/DL (<0.4); BILIRUBIN,TOTAL 0.5 MG/DL (0.3-1.2); BLOOD UREA NITROGEN 11 MG/DL (9-23); CALCIUM LEVEL 8.7 MG/DL (8.5-10.1); CARBON DIOXIDE LEVEL 24 MMOL/L (20-31); CHLORIDE LEVEL 103 MMOL/L (98-107); CREATININE FOR GFR 0.84 MG/DL (0.70-1.30); GLOMERULAR FILTRATION RATE > 60.0 (>56); GLUCOSE, FASTING 104 MG/DL (60-100); SALICYLATE LEVEL < 3.0 MG/DL (<30); SODIUM LEVEL 137 MMOL/L (136-145); TOTAL PROTEIN 7.3 G/DL (5.7-8.2)
[2024-11-27 00:38] LABS: THYROID STIMULATING HORMONE 1.209 uIU/ML (0.55-4.78)
[2024-11-27 02:46] LABS: BARBITURATES URINE NEGATIVE (NEGATIVE); BENZODIAZEPINES URINE NEGATIVE (NEGATIVE); COCAINE METABOLITE URINE NEGATIVE (NEGATIVE); METHADONE URINE NEGATIVE (NEGATIVE); OPIATES URINE NEGATIVE (NEGATIVE); PHENCYCLIDINE URINE NEGATIVE (NEGATIVE)
[2024-11-27 02:47] LABS: AMPHETAMINES LEVEL URINE POSITIVE (NEGATIVE); CANNABINOIDS URINE POSITIVE (NEGATIVE)
[2024-11-27] MEDS ORDERED: zolPIDEM TARTRATE 5 MG TAB PO PRN (09:05)
[2024-11-27] MEDS ORDERED: AMBI10TA PO (09:14)
[2024-11-27] MEDS ORDERED: GABA-1172 PO (09:14)
[2024-11-27] MEDS ORDERED: CYCL-707 PO (09:14)
[2024-11-27] MEDS ORDERED: HALO5TAB33 PO (09:14)
[2024-11-27] MEDS ORDERED: HOME MED LIST COMPLETE! XX SCH (09:15)
[2024-11-27] MEDS: GABAPENTIN 300 MG CAP PO SCH (09:37)
[2024-11-27] MEDS: ESCITALOPRAM OXALATE 10 MG TAB (LEXAPRO) PO SCH (09:37)
[2024-11-27] MEDS: CYCLOBENZAPRINE 10MG TABLET PO PRN (09:42)
[2024-11-27] MEDS ORDERED: diphenhydrAMINE 25MG CAP PO PRN (19:00)
[2024-11-27] MEDS ORDERED: MAALOX 30 ML SUSP *UDC PO PRN (19:00)
[2024-11-27] MEDS ORDERED: MOM 30ML SUSPENSION UDC PO PRN (19:00)
[2024-11-27 22:50] VITALS: BP 119/74; TEMP 98.4; O2SAT 98
[2024-11-28 06:58] VITALS: BP 117/79; TEMP 97.6; O2SAT 100
[2024-11-28] MEDS: GABAPENTIN 300 MG CAP PO SCH (10:20)
[2024-11-28] MEDS: ESCITALOPRAM OXALATE 10 MG TAB (LEXAPRO) PO SCH (10:20)
[2024-11-28] MEDS: CYCLOBENZAPRINE 10MG TABLET PO PRN (10:21)
[2024-11-28] MEDS: IBUPROFEN 400MG TAB PO PRN (16:47)
[2024-11-28 16:49] VITALS: BP 125/72; TEMP 98; O2SAT 98
[2024-11-29 06:31] VITALS: BP 139/78; TEMP 97.7; O2SAT 97
[2024-11-29 14:58] VITALS: BP 125/58; TEMP 98.1; O2SAT 98
[2024-11-29] MEDS: GABAPENTIN 300 MG CAP PO SCH (15:10)
[2024-11-29] MEDS: ANALGESIC BALM CRM 3OZ TOP SCH (15:12)
[2024-11-29] MEDS ORDERED: IBUPROFEN 200MG TAB PO SCH (18:00)
[2024-11-30 06:25] VITALS: BP 104/62; TEMP 98; O2SAT 97
[2024-11-30] MEDS: ACETAMINOPHEN 325 MG TAB PO PRN (15:56)
[2024-11-30 16:24] VITALS: BP 115/72; TEMP 97.9; O2SAT 99
[2024-12-01 06:37] VITALS: BP 118/67; TEMP 97.7; O2SAT 100
[2024-12-01 15:43] VITALS: BP 126/77; TEMP 98.3; O2SAT 99
[2024-12-02 06:49] VITALS: BP 109/82; TEMP 97.6; O2SAT 100
[2024-12-02] MEDS: ONDANSETRON 4MG TAB PO PRN (13:02)
[2024-12-02 15:53] VITALS: BP 134/76; TEMP 98.7; O2SAT 99
[2024-12-03 06:48] VITALS: BP 109/73; TEMP 98.1; O2SAT 100
[2024-12-03 15:10] VITALS: BP 129/80; TEMP 97.7; O2SAT 100
[2024-12-04 06:37] VITALS: BP 136/64; TEMP 97.4; O2SAT 100
[2024-12-04 15:59] VITALS: BP 147/71; TEMP 98.6; O2SAT 97
[2024-12-05 06:19] VITALS: BP 129/74; TEMP 97.5; O2SAT 96
[2024-12-05] MEDS ORDERED: GABA-1172 PO (12:23)
[2024-12-05] MEDS ORDERED: LEXA1TAB PO (12:23)
[2024-12-05] MEDS ORDERED: HALO5TAB33 PO (12:23)
== END 2024-12-05 13:05 | disposition home or self-care (01) | DRG 750 ==
LOC: M ED 22:55 → M ED INP 11-27 19:00 → M PSY 11-27 22:40
PROVIDERS: ADMIT Psychiatry & Neurology Neurology; ATTEND Psychiatry & Neurology Psychiatry
DX: F25.0 Schizoaffective disorder, bipolar type (principal); F15.20 Other stimulant dependence, uncomplicated; F41.9 Anxiety disorder, unspecified; Z88.8 Allergy status to other drugs, medicaments and biological substances; M54.2 Cervicalgia; G89.29 Other chronic pain; R73.9 Hyperglycemia, unspecified; D64.9 Anemia, unspecified; Z59.02 Unsheltered homelessness; Z91.51 Personal history of suicidal behavior; Z91.148 Patient's other noncompliance with medication regimen for other reason; Z79.899 Other long term (current) drug therapy; F60.2 Antisocial personality disorder

== ENCOUNTER 2024-12-08 02:50 | Emergency (ER) | payer OTHER ==
[~2024-12-08] VITALS: Ht 182.9 cm; Wt 100.7 kg
[~2024-12-08 02:50] MED LIST changes: +CYCL-707 PO
[2024-12-08 03:31] LABS: HEMATOCRIT 35.4 % (42.0-52.0); HEMOGLOBIN 11.4 g/dl (13.5-17.5); MEAN CORPUSCULAR HEMOGLOBIN 28.4 pg (27.0-33.0); MEAN CORPUSCULAR HGB CONC 32.2 g/dl (32.0-36.5); MEAN CORPUSCULAR VOLUME 88.1 fl (80.0-96.0); PLATELET COUNT, AUTOMATED 260 10^3/uL (150-450); RED BLOOD COUNT 4.02 10^6/uL (4.30-6.10); WHITE BLOOD COUNT 9.3 10^3/uL (4.0-10.0)
[2024-12-08 03:52] LABS: ETHYL ALCOHOL (ETHANOL) < 0.003 % (0.000-0.010)
[2024-12-08 03:54] LABS: ALBUMIN 3.3 G/DL (3.2-5.2); ALKALINE PHOSPHATASE 110 U/L (40-129); ALT/SGPT 19 U/L (7.0-40); AST/SGOT 12 U/L (<34); BILIRUBIN,DIRECT < 0.1 MG/DL (<0.4); BILIRUBIN,TOTAL 0.2 MG/DL (0.3-1.2); BLOOD UREA NITROGEN 15 MG/DL (9-23); CALCIUM LEVEL 8.2 MG/DL (8.5-10.1); CARBON DIOXIDE LEVEL 29 MMOL/L (20-31); CHLORIDE LEVEL 102 MMOL/L (98-107); CREATININE FOR GFR 0.79 MG/DL (0.70-1.30); GLOMERULAR FILTRATION RATE > 60.0 (>56); GLUCOSE, FASTING 123 MG/DL (60-100); POTASSIUM SERUM 4.3 MMOL/L (3.5-5.1); SALICYLATE LEVEL < 3.0 MG/DL (<30); SODIUM LEVEL 138 MMOL/L (136-145); TOTAL PROTEIN 6.7 G/DL (5.7-8.2)
[2024-12-08 03:57] LABS: THYROID STIMULATING HORMONE 1.317 uIU/ML (0.55-4.78)
[2024-12-08 05:16] LABS: BARBITURATES URINE NEGATIVE (NEGATIVE); BENZODIAZEPINES URINE NEGATIVE (NEGATIVE); COCAINE METABOLITE URINE NEGATIVE (NEGATIVE); METHADONE URINE NEGATIVE (NEGATIVE); OPIATES URINE NEGATIVE (NEGATIVE); PHENCYCLIDINE URINE NEGATIVE (NEGATIVE)
[2024-12-08 05:19] LABS: AMPHETAMINES LEVEL URINE POSITIVE (NEGATIVE); CANNABINOIDS URINE POSITIVE (NEGATIVE)
[2024-12-08] MEDS ORDERED: CYCLOBENZAPRINE 10MG TABLET PO PRN (10:30)
[2024-12-08 12:58] VITALS: BP 126/83; TEMP 96.9; O2SAT 99
== END 2024-12-08 13:01 | disposition home or self-care (01) ==
LOC: M ED 02:50
DX: F25.9 Schizoaffective disorder, unspecified (principal); F41.9 Anxiety disorder, unspecified; F31.9 Bipolar disorder, unspecified; F32.A Depression, unspecified; Z88.8 Allergy status to other drugs, medicaments and biological substances; Z79.899 Other long term (current) drug therapy

== ENCOUNTER → 2025-04-07 | Outpatient (CLI) | payer OTHER ==
[~2025-04-07] MED LIST changes: -AMBI10TA PO; -AMBI5TAB PO; +ZOLP-532 PO; +ZOLP-533 PO
[2025-04-07 13:23] LABS: PLATELET COUNT, AUTOMATED 291 10^3/uL (150-450)
[2025-04-07 13:45] LABS: ALT/SGPT 21 U/L (7.0-40); AST/SGOT 17 U/L (<34); CALCIUM LEVEL 9.1 MG/DL (8.5-10.1); CARBON DIOXIDE LEVEL 26 MMOL/L (20-31); CHLORIDE LEVEL 104 MMOL/L (98-107); CHOLESTEROL LEVEL 194 MG/DL (<200); CHOLESTEROL RISK RATIO 5.89 (<5); CREATININE FOR GFR 0.88 MG/DL (0.70-1.30); GLOMERULAR FILTRATION RATE > 90.0 (>56); LDL CHOLESTEROL 110.3 MG/DL (<100); NON-HDL-C 161.1 MG/DL; POTASSIUM SERUM 4.4 MMOL/L (3.5-5.1); SODIUM LEVEL 142 MMOL/L (136-145); TRIGLYCERIDES LEVEL 254 MG/DL (<150)
[2025-04-07 14:21] LABS: ESTIMATED AVERAGE GLUCOSE 114.0 MG/DL (60-110)
== END ==
LOC: M LAB 12:44
DX: F31.81 Bipolar II disorder (principal)

== ENCOUNTER → 2025-08-13 | Outpatient (REF) | payer OTHER ==
[2025-08-13 14:42] LABS: PSA SCREENING 0.27 NG/ML (< 4.00)
[2025-08-13 14:43] LABS: ALT/SGPT 22.0 U/L (7.0-40); AST/SGOT 15.0 U/L (<34); CHOLESTEROL LEVEL 137.0 MG/DL (<200); CHOLESTEROL RISK RATIO 3.94 (<5); LDL CHOLESTEROL 75.9 MG/DL (<100); NON-HDL-C 102.3 MG/DL; TRIGLYCERIDES LEVEL 132.0 MG/DL (<150)
[2025-08-13 14:50] LABS: BASO # 0.1 10^3/uL (0.0-0.2); BASO % 1.2 % (0.0-1.0); EOS # 0.3 10^3/uL (0.0-0.5); EOS % 4.7 % (0.0-3.0); LYMPH # 2.1 10^3/uL (1.5-5.0); LYMPH % 29.1 % (24.0-44.0); MONO # 0.5 10^3/uL (0.0-0.8); MONO % 6.5 % (2.0-8.0); NEUTROPHILS # 4.2 10^3/uL (1.5-8.5); NEUTROPHILS % 57.9 % (36.0-66.0); PLATELET COUNT, AUTOMATED 216 10^3/uL (150-450)
== END ==
LOC: M LAB REF 13:56
PROVIDERS: ATTEND Nurse Practitioner Family
DX: E78.00 Pure hypercholesterolemia, unspecified (principal); Z12.5 Encounter for screening for malignant neoplasm of prostate; D72.89 Other specified disorders of white blood cells